=== PATIENT | female | born 1975 | race Caucasian/White ===

== ENCOUNTER 2016-11-06 07:51 | Emergency (ER) | payer MEDICAID ==
[2016-11-06 07:57] VITALS: BP 130/78
[2016-11-06] MEDS ORDERED: DEXAMETHASONE 10 MG/ML VIAL PO STA (08:24)
[2016-11-06] MEDS ORDERED: AZITHROMYCIN 250 MG TABLET PO STA (08:24)
[2016-11-06] MEDS ORDERED: DEXAMETHASONE 10 MG/ML VIAL ONE (08:29)
[2016-11-06] MEDS ORDERED: AZITHROMYCIN 250 MG TABLET PO ONE (08:29)
[2016-11-06] MEDS ORDERED: CHERRY SYRUP 10 ML UDC PO ONE (08:30)
--- NOTE | 2016-11-06 08:30 | ED Physician Documentation ---
PD HPI HEENT - Stated complaint Stated Complaint: TOOTH/EAR PX - Chief complaint Chief Complaint: Heent - History obtained from History obtained from: Patient - History of Present Illness Timing - duration: Weeks (About 6 weeks.) Timing - details: Waxing and waning Similar symptoms before: Treatment (Previous treatment with Augmentin and with Cipro, as well as Sudafed.) Recently seen: Other (Has undergone treatment by nurse at [facility].) - Additional information Additional information: The patient is a 41-year-old female who was released from the [facility] this morning, and presents to the emergency department complaining of bilateral earaches, worse on the left than the right. In addition she complains of abscessed right lower tooth, sore throat, and pressure in her head. She has had similar symptoms waxing and waning for at least 6 weeks. She was treated with a 10 day course of Augmentin 6 weeks ago, and then with a course of ciprofloxacin when the Augmentin did not relieve her symptoms. She denies cough , vomiting, or dysuria. She is uncertain but thinks she may have had a low- grade fever. Review of Systems Constitutional: reports: Fever (uncertain) Eyes: denies: Discharge Ears: reports: Ear pain (left more than right.) Nose: reports: Sinus pressure / pain Throat: reports: Dental pain / toothache, Sore throat Cardiac: denies: Chest pain / pressure Respiratory: denies: Dyspnea, Cough GI: denies: Abdominal Pain, Nausea, Vomiting : denies: Dysuria Skin: denies: Rash Musculoskeletal: denies: Back pain, Extremity swelling Neurologic: reports: Headache ("pressure") PD PAST MEDICAL HISTORY - Past Medical History Cardiovascular: High cholesterol, Hypertension Respiratory: Asthma, Shortness of breath Neuro: TIA, CVA, Head injury, Headache/migraine Endocrine/Autoimmune: None GI: GERD, Ulcers 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 HEENT: None Psych: Anxiety, Panic attacks, ADD/ADHD, Post traumatic stress disorder Musculoskeletal: Chronic back pain, Other Derm: None - Past Surgical History Past Surgical History: Yes Ortho: Other /WORKFORCE DEVELOPMENT VICE PRESIDENT: section HEENT: Tonsil/Adenoidectomy - Present Medications Home Medications: Ambulatory Orders Medication Instructions Recorded Confirmed Ibuprofen 800 mg PO DAILY PRN 07/18/15 11/06/16 Bupropion HCl 100 mg PO TID 11/21/15 11/06/16 Quetiapine Fumarate 100 mg PO TID 11/21/15 11/06/16 Acetaminophen/Cod 300/30 [Tylenol 1 each PO Q4-6H PRN #20 tablet 11/06/16 #3] Azithromycin [Zithromax] 250 mg PO DAILY #6 tablet 11/06/16 Pseudoephedrine [Sudafed] 1 tab PO .FREQ 11/06/16 11/06/16 diphenhydrAMINE [Benadryl] 1 tab PO .FREQ 11/06/16 11/06/16 - Allergies Allergies/Adverse Reactions: Allergies Allergy/AdvReac Type Severity Reaction Status Date / Time doxycycline Allergy Rash Verified 11/06/16 07:56 ketorolac tromethamine * Allergy Unknown Verified 11/06/16 07:56 [From Toradol] - Social History Does the pt smoke?: Yes Smoking Status: Current some day smoker Does the pt drink ETOH?: No Does the pt have substance abuse?: No - Immunizations Immunizations are current?: Yes - POLST Patient has POLST: No PD ED PE NORMAL - Vitals Vital signs reviewed: Yes (normal) - General General: Alert and oriented X 3, Well developed/nourished, Other (sounds congested when speaking.) - HEENT HEENT: Atraumatic, EOMI, Pharynx benign, Other (There is purulence behind the left tympanic membrane, with decreased hearing on the left compared to the right. Examination of her teeth reveal scattered dental caries, with tenderness to palpation of right lower molar. There is no facial swelling.) - Neck Neck: Supple, no meningeal sign, No JVD, Other (Mildly enlarged anterior cervical nodes bilaterally.) - Cardiac Cardiac: RRR, No murmur - Respiratory Respiratory: No respiratory distress, Clear bilaterally - Abdomen Abdomen: Soft, Non tender - Back Back: No CVA TTP - Derm Derm: No rash - Extremities Extremities: No edema, No calf tenderness / cord - Neuro Neuro: Alert and oriented X 3, No motor deficit, Normal speech Results - Vitals Vitals: Oxygen O2 Source Room air PD MEDICAL DECISION MAKING - ED course Complexity details: reviewed old records, considered differential, d/w patient ED course: The patient's presentation is significant for persistent left otitis media, despite previous antibiotic treatment. She likely also has sinusitis. Her presentation does not suggest meningitis or peritonsillar abscess. She also has dental caries with odontalgia. Treatment in the emergency department included administration of Zithromax 500 mg orally and dexamethasone 10 mg orally. She is being discharged with prescriptions for Zithromax and for Tylenol No. 3. I discussed with her the diagnoses, antibiotic treatment and outpatient follow-up, as well as potentially worrisome signs or symptoms that should prompt reevaluation in the emergency department. Departure - Departure Disposition: 01 Home, Self Care Clinical Impression: Acute left otitis media, Pain, dental Headache Qualifiers: Headache type: unspecified Headache chronicity pattern: episodic headache Intractability: not intractable Qualified Code(s): R51 - Headache Condition: Stable Instructions: ED Otitis Media Acute Adult, ED Cephalgia Unspecified, ED Tooth Pain Follow-Up: [facility] [Provider Group] Prescriptions: Acetaminophen/Cod 300/30 [Tylenol #3] 1 each PO Q4-6H PRN #20 tablet PRN Reason: Pain Azithromycin [Zithromax] 250 mg PO DAILY #6 tablet Comments: Zithromax daily as prescribed. You can use Tylenol #3 as prescribed if needed for pain. Followup with your primary physician as scheduled. Return to the emergency department if you develop increasing pain, fever with shaking chills, or otherwise worsening symptoms. Discharge Date/Time: 11/06/16 08:37
== END 2016-11-06 08:37 | disposition home or self-care (01) ==
LOC: ED 07:51
DX: H66.93 Otitis media, unspecified, bilateral (principal); K08.89 Other specified disorders of teeth and supporting structures; R51 Headache; I10 Essential (primary) hypertension; E78.00 Pure hypercholesterolemia, unspecified; J45.909 Unspecified asthma, uncomplicated; Z86.73 Personal history of transient ischemic attack (TIA), and cerebral infarction without residual deficits; K21.9 Gastro-esophageal reflux disease without esophagitis; F17.200 Nicotine dependence, unspecified, uncomplicated
CPT/HCPCS: 99283; A9270

== ENCOUNTER 2016-11-17 10:56 | Emergency (ER) | payer MEDICAID | END 2016-11-17 12:41 | disposition left against medical advice (07) | DX: Z53.21 Procedure and treatment not carried out due to patient leaving prior to being seen by health care provider (principal) ==

== ENCOUNTER 2017-03-03 11:02 | Emergency (ER) | payer MEDICAID ==
--- NOTE | 2017-03-03 12:07 | XRAY Preliminary Report ---
Exam: XR Foot 3 View RT IMPRESSION: 1. No acute fracture or dislocation identified. Intact appearing fixation screw at the distal tibia. [facility] SITE ID: [id number]
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
[2017-03-03] MEDS ORDERED: DEXAMETHASONE 10 MG/ML VIAL PO STA (13:40)
[2017-03-03] MEDS ORDERED: DEXAMETHASONE 10 MG/ML VIAL ONE (13:59)
[2017-03-03] MEDS ORDERED: CHERRY SYRUP 10 ML UDC PO ONE (14:00)
[2017-03-03] MEDS ORDERED: ACETAMINOPHEN/CODEINE 300 MG/30 MG TABLET PO STA (14:24)
[2017-03-03] MEDS ORDERED: ACETAMINOPHEN/CODEINE 300 MG/30 MG TABLET PO ONE (14:29)
[2017-03-03 14:30] VITALS: BP 120/70
== END 2017-03-03 14:29 | disposition home or self-care (01) ==
LOC: ED 11:02
DX: S93.601A Unspecified sprain of right foot, initial encounter (principal); W01.0XXA Fall on same level from slipping, tripping and stumbling without subsequent striking against object, initial encounter; X50.1XXA Overexertion from prolonged static or awkward postures, initial encounter; Y92.009 Unspecified place in unspecified non-institutional (private) residence as the place of occurrence of the external cause; I10 Essential (primary) hypertension; E78.00 Pure hypercholesterolemia, unspecified; F17.200 Nicotine dependence, unspecified, uncomplicated
CPT/HCPCS: 29505; 73630; 99283; A9270

== ENCOUNTER 2017-03-20 14:39 | Outpatient (CLI) | payer MEDICAID ==
[2017-03-20 14:02] LABS: BASOPHILS # (AUTO) 0.1 10^3/uL (0.0-0.1); EOSINOPHILS # (AUTO) 0.1 10^3/uL (0.0-0.7); EOSINOPHILS % (AUTO) 1.5 %; HCT - HEMATOCRIT 34.2 % (37.0-47.0); HGB - HEMOGLOBIN 11.4 g/dL (12.0-16.0); LYMPHOCYTES # (AUTO) 1.8 10^3/uL (1.5-3.5); MEAN CORPUSCULAR HEMOGLOBIN 27.3 pg (27.0-31.0); MEAN CORPUSCULAR HGB CONC 33.2 g/dL (32.0-36.0); MEAN CORPUSCULAR VOLUME 82.3 fL (81.0-99.0); MEAN PLATELET VOLUME 7.7 fL (7.9-10.8); MONOCYTES # (AUTO) 0.7 10^3/uL (0.0-1.0); MONOCYTES % (AUTO) 7.7 %; NEUTROPHILS # (AUTO) 5.9 10^3/uL (1.5-6.6); NEUTROPHILS % (AUTO) 68.8 %; NUCLEATED RED BLOOD CELLS AUTO 0.1 /100WBC; RED BLOOD COUNT 4.15 10^6/uL (4.20-5.40); RED CELL DISTRIBUTION WIDTH 16.6 % (12.0-15.0); UNCORRECTED WHITE BLOOD COUNT 8.5 x10^3/uL; WHITE BLOOD COUNT 8.5 x10^3/uL (4.8-10.8)
[2017-03-20 14:56] LABS: ALBUMIN/GLOBULIN RATIO 1.4 (1.0-2.2); BILIRUBIN,TOTAL 0.7 mg/dL (0.2-1.0); BUN - BLOOD UREA NITROGEN 26 mg/dL (6-20); CALCIUM 9.1 mg/dL (8.5-10.3); CARBON DIOXIDE - CO2 23 mmol/L (21-32); CHLORIDE 107 mmol/L (101-111); CHOL/HDL RATIO 2.7 (<4.4); CHOLESTEROL 194 mg/dL; CREATININE 0.6 mg/dL (0.4-1.0); GFR - MDRD 111 (>89); GLUCOSE 94 mg/dL (70-100); HDL CHOLESTEROL 71 mg/dL; LDL/HDL RATIO 1.6 (<4.4); POTASSIUM 4.1 mmol/L (3.5-5.0); SODIUM 137 mmol/L (135-145); TOTAL PROTEIN 7.3 g/dL (6.7-8.2); TRIGLYCERIDES 59 mg/dL; VLDL CHOLESTEROL 12 mg/dL
== END 2017-03-20 14:40 | disposition home or self-care (01) ==
LOC: LAB.N 14:39
PROVIDERS: ATTEND Nurse Practitioner Gerontology
DX: Z79.899 Other long term (current) drug therapy (principal)
CPT/HCPCS: 36415; 80053; 80061; 84443; 85025

== ENCOUNTER 2017-06-04 11:54 | Emergency (ER) | payer MEDICAID ==
[2017-06-04 12:09] VITALS: BP 125/79
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
[2017-06-04] MEDS ORDERED: DEXAMETHASONE 10 MG/ML VIAL PO STA (13:31)
[2017-06-04] MEDS ORDERED: HYDROcod/ACETAM 5/325 MG TABLET PO STA (13:31)
[2017-06-04] MEDS ORDERED: METHOCARBAMOL 500 MG TABLET PO STA (13:31)
[2017-06-04] MEDS ORDERED: DEXAMETHASONE 10 MG/ML VIAL ONE (13:42)
[2017-06-04] MEDS ORDERED: METHOCARBAMOL 500 MG TABLET PO ONE (13:42)
[2017-06-04] MEDS ORDERED: HYDROcod/ACETAM 5/325 MG TABLET ONE (13:42)
== END 2017-06-04 14:16 | disposition home or self-care (01) ==
LOC: ED 11:54
DX: T14.8XXA Other injury of unspecified body region, initial encounter (principal); W17.89XA Other fall from one level to another, initial encounter; I10 Essential (primary) hypertension; E78.00 Pure hypercholesterolemia, unspecified; F17.200 Nicotine dependence, unspecified, uncomplicated
CPT/HCPCS: 99283; A9270

== ENCOUNTER 2017-06-07 10:08 | Emergency (ER) | payer MEDICAID ==
[2017-06-07 11:59] VITALS: BP 116/74
--- NOTE | 2017-06-07 12:02 | XRAY Preliminary Report ---
Exam: XR HIP W/PELVIS 2-3V RT IMPRESSION: Normal pelvis and hip radiography. [facility] SITE ID: [id number]
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
== END 2017-06-07 13:30 | disposition home or self-care (01) ==
LOC: EDBD → EDUNIT# → ED 10:08
DX: S70.01XA Contusion of right hip, initial encounter (principal); V03.90XA Pedestrian on foot injured in collision with car, pick-up truck or van, unspecified whether traffic or nontraffic accident, initial encounter; Y92.488 Other paved roadways as the place of occurrence of the external cause; I10 Essential (primary) hypertension; E78.00 Pure hypercholesterolemia, unspecified; J45.909 Unspecified asthma, uncomplicated; K21.9 Gastro-esophageal reflux disease without esophagitis; Z87.11 Personal history of peptic ulcer disease; F17.200 Nicotine dependence, unspecified, uncomplicated
CPT/HCPCS: 99283

== ENCOUNTER 2017-06-07 12:50 | Outpatient (CLI) | payer MEDICAID | END 2017-06-07 12:51 | disposition critical access hospital (66) | LOC: EMS 12:50 | PROVIDERS: ATTEND Surgery | DX: R52 Pain, unspecified (principal) | CPT/HCPCS: A0425; A0429 ==

== ENCOUNTER 2017-06-08 01:25 | Emergency (ER) | payer MEDICAID ==
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
--- NOTE | 2017-06-08 02:21 | XRAY Preliminary Report ---
Exam: XR TIB/FIB LT IMPRESSION: 1. No fracture or dislocation seen. [facility] SITE ID: [id number]
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
[2017-06-08 02:51] VITALS: BP 121/70
== END 2017-06-08 02:22 | disposition home or self-care (01) ==
LOC: ED 01:25
DX: M79.662 Pain in left lower leg (principal); V03.10XA Pedestrian on foot injured in collision with car, pick-up truck or van in traffic accident, initial encounter; Y92.488 Other paved roadways as the place of occurrence of the external cause; I10 Essential (primary) hypertension; E78.00 Pure hypercholesterolemia, unspecified; J45.909 Unspecified asthma, uncomplicated; K21.9 Gastro-esophageal reflux disease without esophagitis; Z87.11 Personal history of peptic ulcer disease; F17.200 Nicotine dependence, unspecified, uncomplicated
CPT/HCPCS: 99283

== ENCOUNTER 2017-08-31 07:55 | Emergency (ER) | payer MEDICAID ==
[2017-08-31 08:05] VITALS: BP 133/90
[2017-08-31] MEDS ORDERED: DEXAMETHASONE 10 MG/ML VIAL PO STA (08:11)
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
[2017-08-31] MEDS ORDERED: AMOX/CLAV 875 MG/125 MG TABLET PO STA (08:15)
[2017-08-31] MEDS ORDERED: CHERRY SYRUP 10 ML UDC PO ONE (08:28)
--- NOTE | 2017-08-31 08:42 | XRAY Report ---
EXAM: CHEST RADIOGRAPHY EXAM DATE: 08/31/2017 08:35 AM. CLINICAL HISTORY: Cough chest pain soa. COMPARISON: None. TECHNIQUE: 2 views. FINDINGS: Lungs/Pleura: No focal opacities evident. No pleural effusion. No pneumothorax. Normal volumes. Mediastinum: Heart and mediastinal contours are unremarkable. Other: None. IMPRESSION: No acute radiographic cardiopulmonary process [facility] Referring Provider Line: [phone] SITE ID: [id number]
== END 2017-08-31 08:53 | disposition home or self-care (01) ==
LOC: ED 07:55
DX: M94.0 Chondrocostal junction syndrome [Tietze] (principal); H66.001 Acute suppurative otitis media without spontaneous rupture of ear drum, right ear; E78.00 Pure hypercholesterolemia, unspecified; I10 Essential (primary) hypertension; F17.200 Nicotine dependence, unspecified, uncomplicated
CPT/HCPCS: 71046; 99283; A9270

== ENCOUNTER 2018-04-23 16:14 | Emergency (ER) | payer MEDICAID ==
[2018-04-23 16:20] VITALS: BP 133/83
[2018-04-23] MEDS ORDERED: DEXAMETHASONE 10 MG/ML VIAL PO STA (16:35)
[2018-04-23] MEDS ORDERED: CHERRY SYRUP 10 ML UDC PO ONE (16:53)
--- NOTE | 2018-04-23 17:14 | ED Physician Documentation ---
PD HPI HEENT - Stated complaint Stated Complaint: EAR PX - Chief complaint Chief Complaint: Heent - History obtained from History obtained from: Patient - History of Present Illness Timing - onset: How many days ago (5) Timing - duration: Days (5) Timing - details: Gradual onset, Still present Location: Right ear, Sinuses, Throat Improves: Medication Worsens: Swalllowing Associated symptoms: Congestion, Rhinorrhea, Headache, Cough Similar symptoms before: Diagnosis (OM) Recently seen: Not recently seen - Additional information Additional information: 42-year-old female with a history of recurrent otitis media has developed signs and symptoms of another infection. She has a cough congestion ear pain and a sensation of fullness in both ears. She has a headache which is throbbing and anteriorly located. She feels heavy in her legs. Review of Systems Constitutional: reports: Chills, Fatigue, Sweats. denies: Fever Eyes: denies: Decreased vision Ears: reports: Loss of hearing, Ear pain, Tinnitus/ringing Nose: reports: Rhinorrhea / runny nose, Congestion Throat: reports: Sore throat Cardiac: denies: Chest pain / pressure, Palpitations Respiratory: reports: Cough. denies: Dyspnea GI: denies: Abdominal Pain, Nausea, Vomiting : denies: Dysuria, Frequency Skin: denies: Abrasion (s) Musculoskeletal: denies: Neck pain, Back pain Neurologic: denies: Generalized weakness, Focal weakness, Numbness PD PAST MEDICAL HISTORY - Past Medical History Cardiovascular: High cholesterol, Hypertension Respiratory: Asthma, Shortness of breath Neuro: None Endocrine/Autoimmune: None GI: GERD, Ulcers CLIENT ARCHITECT: Other HEENT: None Psych: Anxiety, Panic attacks, ADD/ADHD, Post traumatic stress disorder Musculoskeletal: Chronic back pain, Other Derm: None - Past Surgical History Past Surgical History: Yes Ortho: Other /CLIENT ARCHITECT: section HEENT: Tonsil/Adenoidectomy - Present Medications Home Medications: Ambulatory Orders Medication Instructions Recorded Confirmed Quetiapine Fumarate 800 mg PO DAILY 11/21/15 11/17/16 buPROPion HCl [Bupropion HCl] 100 mg PO BID 11/21/15 11/17/16 Albuterol Sulf [Ventolin Hfa 1 - 2 puffs INH Q4HR PRN #1 inhaler 08/31/17 Inhaler] Amox/Clav 875/125 [Augmentin] 1 each PO Q12H #20 tablet 10/05/18 Dextroamphetamine/Amphetamine 1 tab PO BID 04/23/18 04/23/18 [Adderall 10 mg Tablet] Fluconazole [Diflucan] 150 mg PO ONCE #1 tablet 04/23/18 Fluticasone 44 Mcg [Flovent] 1 puffs INH Q6HR PRN 04/23/18 04/23/18 HYDROcod/ACETAM 5/325 [[place] 5/325] 1 - 2 ea PO Q6H PRN #10 tablet 04/23/18 busPIRone [Buspar] 3 tab PO BID 04/23/18 04/23/18 predniSONE [Deltasone] 40 mg PO DAILY 5 Days #10 tablet 04/23/18 - Allergies Allergies/Adverse Reactions: Allergies Allergy/AdvReac Type Severity Reaction Status Date / Time doxycycline Allergy Rash Verified 04/23/18 16:19 ketorolac tromethamine * Allergy Unknown Verified 04/23/18 16:19 [From Toradol] - Social History Does the pt smoke?: Yes Smoking Status: Current every day smoker Does the pt drink ETOH?: No Does the pt have substance abuse?: No - Immunizations Immunizations are current?: Yes Immunizations: TDAP >10years/unknown - POLST Patient has POLST: No PD ED PE NORMAL - Vitals Vital signs reviewed: Yes (hyperternsive mild) - General General: Alert and oriented X 3, Well developed/nourished, Other (appears to be in pain with lead application architect tone and flat affect) - HEENT HEENT: Atraumatic, PERRL, EOMI, Other (erythema to the right TM with flattening of the landmarks. nasal quality to voice. erythema to the pharynx on the right over the tonsillar pillar. ) - Neck Neck: Supple, no meningeal sign, No bony TTP - Cardiac Cardiac: RRR, No murmur - Respiratory Respiratory: No respiratory distress, Clear bilaterally - Abdomen Abdomen: Soft, Non tender - Back Back: No CVA TTP, No spinal TTP - Derm Derm: Normal color, Warm and dry, No rash - Extremities Extremities: No deformity, No edema - Neuro Neuro: Alert and oriented X 3, medical imaging technologist 2-12 intact, No motor deficit, No sensory deficit, Normal speech Eye Opening: Spontaneous Motor: Obeys Commands Verbal: Oriented GCS Score: 15 - Psych Psych: Normal mood, Normal affect Results - Vitals Vitals: Vital Signs - 24 hr 04/23/18 16:16 Temperature 36.7 C Heart Rate 91 Respiratory 16 Rate Blood Pressure 133/83 H O2 Saturation 100 Oxygen O2 Source Room air PD MEDICAL DECISION MAKING - ED course Complexity details: reviewed old records, considered differential, d/w patient ED course: 42 y/o female with a history of recurrent OM has another infection. She is a poor historian and does not remember but thinks her last treatment was successful. She is treated here in the ED with decadron and we will place her on augmentin and prednisone. - Sepsis Event Vital Signs: Vital Signs - 24 hr 04/23/18 16:16 Temperature 36.7 C Heart Rate 91 Respiratory 16 Rate Blood Pressure 133/83 H O2 Saturation 100 Oxygen O2 Source Room air Departure - Departure Disposition: 01 Home, Self Care Clinical Impression: Otitis media Qualifiers: Otitis media type: suppurative Chronicity: acute Laterality: right Recurrence: not specified as recurrent Spontaneous tympanic membrane rupture: without spontaneous rupture Qualified Code(s): H66.001 - Acute suppurative otitis media without spontaneous rupture of ear drum, right ear Condition: Stable Instructions: ED Otitis Media Acute Adult Follow-Up: Your, doctor [Other] Prescriptions: Amox/Clav 875/125 [Augmentin] 1 each PO Q12H #20 tablet Fluconazole [Diflucan] 150 mg PO ONCE #1 tablet HYDROcod/ACETAM 5/325 [[place] 5/325] 1 - 2 ea PO Q6H PRN #10 tablet PRN Reason: Pain predniSONE [Deltasone] 40 mg PO DAILY 5 Days #10 tablet
== END 2018-04-23 17:25 | disposition home or self-care (01) ==
LOC: ED 16:14
DX: H66.001 Acute suppurative otitis media without spontaneous rupture of ear drum, right ear (principal); I10 Essential (primary) hypertension; F17.200 Nicotine dependence, unspecified, uncomplicated
CPT/HCPCS: 99283; A9270

== ENCOUNTER 2018-06-16 10:54 | Outpatient (CLI) | payer MEDICAID ==
--- NOTE | 2018-06-16 13:36 | XRAY Report ---
Reason: LUMBAR Procedure Date: 06/16/2018 Accession Number: [id number] / [id number] Procedure: XRN - Lumbar Spine 2 View CPT Code: FULL RESULT: EXAM: LUMBOSACRAL SPINE RADIOGRAPHY EXAM DATE: 06/16/2018 11:21 AM. CLINICAL HISTORY: Lumbar. COMPARISONS: None. TECHNIQUE: 3 views. FINDINGS: Alignment: Normal. No spondylolisthesis or scoliosis. Bones: Five [id number] lumbar vertebral bodies are present. No fractures or bone lesions. Disks: Loss of disk space height with sclerosis and marginal osteophytosis at L5-S1. Facets: Moderate to severe facet arthropathy at L5. Questionable pars defect at L5 which would account for the increased degenerative changes. Sacroiliac Joints: Unremarkable. Soft Tissues: Normal. The visualized bowel gas pattern is normal. IMPRESSION: Degenerative changes predominate L5-S1, question pars defect at this level. [facility]
--- NOTE | 2018-06-16 13:36 | XRAY Report ---
Reason: LUMBAGO/ANKLE ARTHROPATHY Procedure Date: 06/16/2018 Accession Number: [id number] / [id number] Procedure: XRN - Ankle 3 View RT CPT Code: FULL RESULT: EXAM: RIGHT ANKLE RADIOGRAPHY EXAM DATE: 06/16/2018 11:21 AM. CLINICAL HISTORY: Lumbago/ankle arthropathy. COMPARISON: ANKLE 3 VIEW RT 03/12/2017 2:11 PM. TECHNIQUE: 3 views. FINDINGS: Bones: Unchanged configuration of partially threaded distal tibial screw. No fractures or bone lesions. Joints: Normal. No effusion. No subluxations. The ankle mortise is normally aligned. Soft Tissues: Normal. No soft tissue swelling. IMPRESSION: No fracture or dislocation. [facility]
== END 2018-06-16 10:55 | disposition home or self-care (01) ==
LOC: DI.N 10:54
PROVIDERS: ATTEND Nurse Practitioner
DX: M51.37 Other intervertebral disc degeneration, lumbosacral region (principal); M47.9 Spondylosis, unspecified; M12.9 Arthropathy, unspecified; R53.83 Other fatigue
CPT/HCPCS: 36415; 72100; 80053; 85025

== ENCOUNTER 2018-06-16 11:49 | Outpatient (CLI) | payer MEDICAID ==
[2018-06-16 19:15] LABS: ALBUMIN 4.9 g/dL (3.2-5.5); ALBUMIN/GLOBULIN RATIO 1.6 (1.0-2.2); BILIRUBIN,TOTAL 0.6 mg/dL (0.2-1.0); CALCIUM 9.8 mg/dL (8.5-10.3); CREATININE 0.9 mg/dL (0.4-1.0); TOTAL PROTEIN 7.9 g/dL (6.7-8.2)
[2018-06-16 19:20] LABS: BASOPHILS % (AUTO) 0.8 %; EOSINOPHILS # (AUTO) 0.1 10^3/uL (0.0-0.7); EOSINOPHILS % (AUTO) 1.2 %; HGB - HEMOGLOBIN 12.4 g/dL (12.0-16.0); LYMPHOCYTES # (AUTO) 2.1 10^3/uL (1.5-3.5); LYMPHOCYTES % (AUTO) 35.2 %; MEAN CORPUSCULAR HEMOGLOBIN 25.3 pg (27.0-31.0); MEAN CORPUSCULAR HGB CONC 32.7 g/dL (32.0-36.0); MEAN CORPUSCULAR VOLUME 77.4 fL (81.0-99.0); MEAN PLATELET VOLUME 7.6 fL (7.9-10.8); MONOCYTES # (AUTO) 0.5 10^3/uL (0.0-1.0); MONOCYTES % (AUTO) 8.4 %; NEUTROPHILS # (AUTO) 3.2 10^3/uL (1.5-6.6); NEUTROPHILS % (AUTO) 54.4 %; PLT - PLATELET COUNT 347 10^3/uL (130-450); RED CELL DISTRIBUTION WIDTH 17.8 % (12.0-15.0); WHITE BLOOD COUNT 5.9 x10^3/uL (4.8-10.8)
== END 2018-06-16 11:50 | disposition home or self-care (01) ==
LOC: LAB.N 11:49
PROVIDERS: ATTEND Nurse Practitioner
DX: R53.83 Other fatigue (principal)
CPT/HCPCS: 36415; 80053; 85025

== ENCOUNTER 2018-10-25 08:00 | Outpatient (CLI) | payer MEDICAID | END 2018-10-25 23:59 | disposition home or self-care (01) | LOC: LAB.R 08:00 | PROVIDERS: ATTEND Nurse Practitioner | DX: L03.90 Cellulitis, unspecified (principal); W54.0XXD Bitten by dog, subsequent encounter | CPT/HCPCS: 87070; 87077; 87181; 87205 ==

== ENCOUNTER 2018-12-16 11:08 | Emergency (ER) | payer MEDICAID ==
[2018-12-16] MEDS ORDERED: ONDANSETRON 4 MG/2 ML VIAL IVP STA (12:12)
[2018-12-16] MEDS ORDERED: SODIUM CHLORIDE 0.9% 1,000 ML IV ONE (12:12)
[2018-12-16] MEDS ORDERED: MORPHINE 2 MG/ML SYRINGE IVP STA ×2 (12:12→13:43)
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
[2018-12-16 12:39] LABS: BASOPHILS # (AUTO) 0.1 10^3/uL (0.0-0.1); BASOPHILS % (AUTO) 1.5 %; EOSINOPHILS # (AUTO) 0.1 10^3/uL (0.0-0.7); EOSINOPHILS % (AUTO) 2.1 %; HGB - HEMOGLOBIN 10.4 g/dL (12.0-16.0); LYMPHOCYTES # (AUTO) 2.1 10^3/uL (1.5-3.5); LYMPHOCYTES % (AUTO) 35.8 %; MEAN CORPUSCULAR HEMOGLOBIN 25.3 pg (27.0-31.0); MEAN CORPUSCULAR HGB CONC 32.3 g/dL (32.0-36.0); MEAN CORPUSCULAR VOLUME 78.1 fL (81.0-99.0); MEAN PLATELET VOLUME 7.2 fL (7.9-10.8); MONOCYTES # (AUTO) 0.6 10^3/uL (0.0-1.0); MONOCYTES % (AUTO) 9.6 %; PLT - PLATELET COUNT 390 10^3/uL (130-450); RED BLOOD COUNT 4.11 10^6/uL (4.20-5.40); RED CELL DISTRIBUTION WIDTH 16.7 % (12.0-15.0); WHITE BLOOD COUNT 5.9 x10^3/uL (4.8-10.8)
[2018-12-16 12:56] LABS: ALBUMIN 3.8 g/dL (3.2-5.5); ALBUMIN/GLOBULIN RATIO 1.2 (1.0-2.2); BILIRUBIN,TOTAL 0.4 mg/dL (0.2-1.0); CREATININE 0.6 mg/dL (0.4-1.0); TOTAL PROTEIN 7.1 g/dL (6.7-8.2)
--- NOTE | 2018-12-16 13:33 | XRAY Report ---
Reason: fever; back pain Procedure Date: 12/16/2018 Accession Number: [id number] / [id number] Procedure: XR - Lumbar Spine 2 View CPT Code: FULL RESULT: EXAM: LUMBOSACRAL SPINE RADIOGRAPHY EXAM DATE: 12/16/2018 12:35 PM. CLINICAL HISTORY: Fever; back pain. COMPARISONS: LUMBAR SPINE 2 VIEW 06/16/2018 11:15 AM. TECHNIQUE: 2 views. FINDINGS: Alignment: Normal. No spondylolisthesis or scoliosis. Bones: 5 lumbar vertebrae. No fractures or bone lesions. Disks: Marked disk space narrowing at L5-S1 with vacuum disk phenomenon and associated degenerative changes. Other disk spaces well preserved. Facets: Degenerative changes most marked at L5-S1. Sacroiliac Joints: Unremarkable. Soft Tissues: Nonspecific bowel gas pattern with large amount of stool. IMPRESSION: Degenerative joint and disk disease at L5-S1 similar to previous exam. RADIA
--- NOTE | 2018-12-16 13:34 | XRAY Report ---
Reason: cough Procedure Date: 12/16/2018 Accession Number: [id number] / [id number] Procedure: XR - Chest 2 View X-Ray CPT Code: 90065 FULL RESULT: EXAM: CHEST RADIOGRAPHY EXAM DATE: 12/16/2018 12:36 PM. CLINICAL HISTORY: Cough. COMPARISON: CHEST 2 VIEW 08/31/2017 8:12 AM. TECHNIQUE: 2 views. FINDINGS: Lungs/Pleura: Clear. No effusion or pneumothorax. Mediastinum: Heart and mediastinal contours are unremarkable. Other: Mild degenerative changes. IMPRESSION: No acute disease. RADIA
--- NOTE | 2018-12-16 13:35 | XRAY Report ---
Reason: back pain Procedure Date: 12/16/2018 Accession Number: [id number] / [id number] Procedure: XR - Sacrum/Coccyx CPT Code: FULL RESULT: EXAM: SACRUM AND COCCYX RADIOGRAPHY EXAM DATE: 12/16/2018 12:36 PM. HISTORY: Back pain. COMPARISONS: LUMBAR SPINE 2 VIEW 06/16/2018 11:15 AM. TECHNIQUE: 3 views. FINDINGS: Alignment: Normal. The sacrum and coccyx are normally aligned. Bones: Normal. No fracture or bone lesion. Joints: Degenerative joint and disk disease at L5-S1. The sacroiliac joints and visualized hips are within normal limits. Soft Tissues: Unremarkable. IMPRESSION: Normal sacrum and coccyx radiography. RADIA
[2018-12-16 14:31] LABS: BILIRUBIN,URINE NEGATIVE (NEGATIVE); GLUCOSE, URINE (UA) NEGATIVE (NEGATIVE); KETONES,URINE (UA) NEGATIVE (NEGATIVE); LEUKOCYTE ESTERASE, URINE NEGATIVE (NEGATIVE); NITRITE,URINE NEGATIVE (NEGATIVE); OCCULT BLOOD,URINE NEGATIVE (NEGATIVE); PH,URINE 5.5 PH (5.0-7.5); PROTEIN,URINE NEGATIVE (NEGATIVE); UROBILINOGEN,URINE 0.2 (NORMAL) E.U./dL (NORMAL)
[2018-12-16 14:34] LABS: CLARITY,URINE CLEAR (CLEAR)
[2018-12-16 16:20] VITALS: BP 113/70
== END 2018-12-16 16:21 | disposition home or self-care (01) ==
LOC: ED 11:08
DX: S39.92XA Unspecified injury of lower back, initial encounter (principal); W18.30XA Fall on same level, unspecified, initial encounter; W22.8XXA Striking against or struck by other objects, initial encounter; R50.9 Fever, unspecified; F41.9 Anxiety disorder, unspecified; I10 Essential (primary) hypertension; M51.37 Other intervertebral disc degeneration, lumbosacral region; M47.817 Spondylosis without myelopathy or radiculopathy, lumbosacral region; F17.200 Nicotine dependence, unspecified, uncomplicated
CPT/HCPCS: 36415; 71046; 72100; 72220; 80053; 81003; 83690; 85025; 96361; 96374; 96375; 99283; 99284; J2270; 81001; 87086

== ENCOUNTER 2019-02-28 23:39 | Outpatient (CLI) | payer MEDICAID | END 2019-02-28 23:40 | disposition critical access hospital (66) | LOC: EMS 23:39 | PROVIDERS: ATTEND Surgery | DX: R07.81 Pleurodynia (principal); R07.1 Chest pain on breathing; W01.0XXA Fall on same level from slipping, tripping and stumbling without subsequent striking against object, initial encounter | CPT/HCPCS: A0425; A0429 ==

== ENCOUNTER 2019-02-28 23:54 | Emergency (ER) | payer MEDICAID ==
[2019-03-01 00:10] VITALS: BP 116/65
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
[2019-03-01] MEDS ORDERED: IBUPROFEN 600 MG TABLET PO STA (01:46)
== END 2019-03-01 03:48 | disposition home or self-care (01) ==
LOC: EDUNIT# → ED 23:54
DX: S30.0XXA Contusion of lower back and pelvis, initial encounter (principal); R07.89 Other chest pain; W01.0XXA Fall on same level from slipping, tripping and stumbling without subsequent striking against object, initial encounter; R46.2 Strange and inexplicable behavior; I10 Essential (primary) hypertension; F17.200 Nicotine dependence, unspecified, uncomplicated
CPT/HCPCS: 99282; 99284; A9270

== ENCOUNTER 2019-04-08 09:55 | Outpatient (CLI) | payer MEDICAID | END 2019-04-08 09:56 | disposition EMS.NT | LOC: EMS 09:55 | PROVIDERS: ATTEND Surgery | DX: S09.90XA Unspecified injury of head, initial encounter (principal); Y04.2XXA Assault by strike against or bumped into by another person, initial encounter ==

== ENCOUNTER 2019-04-09 01:01 | Outpatient (CLI) | payer MEDICAID, OTHER | END 2019-04-09 01:02 | disposition home or self-care (01) | LOC: EMS 01:01 | PROVIDERS: ATTEND Surgery | DX: M54.2 Cervicalgia (principal); M54.9 Dorsalgia, unspecified; R46.89 Other symptoms and signs involving appearance and behavior; Y04.2XXA Assault by strike against or bumped into by another person, initial encounter | CPT/HCPCS: A0425; A0429; A0999 ==

== ENCOUNTER 2019-04-09 01:19 | Emergency (ER) | payer MEDICAID, OTHER ==
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
[2019-04-09] MEDS ORDERED: ACETAMINOPHEN 325 MG TABLET PO STA (03:04)
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
[2019-04-09] MEDS ORDERED: traMADol 50 MG TABLET PO STA (03:18)
[2019-04-09 03:21] VITALS: BP 108/71
== END 2019-04-09 05:36 | disposition home or self-care (01) ==
LOC: EDUNIT# → ED 01:19
DX: S09.90XA Unspecified injury of head, initial encounter (principal); Y04.2XXA Assault by strike against or bumped into by another person, initial encounter; M50.321 Other cervical disc degeneration at C4-C5 level; M50.222 Other cervical disc displacement at C5-C6 level; I10 Essential (primary) hypertension; F17.200 Nicotine dependence, unspecified, uncomplicated
CPT/HCPCS: 70450; 72125; 99284

== ENCOUNTER 2019-04-09 05:41 | Emergency (ER) | payer MEDICAID, OTHER ==
[2019-04-09 05:57] VITALS: BP 122/79
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
[2019-04-09] MEDS ORDERED: IBUPROFEN 800 MG TABLET PO STA (06:25)
== END 2019-04-09 06:33 | disposition home or self-care (01) ==
LOC: ED 05:41
DX: S09.90XA Unspecified injury of head, initial encounter (principal); Y04.2XXA Assault by strike against or bumped into by another person, initial encounter; M50.321 Other cervical disc degeneration at C4-C5 level; M50.222 Other cervical disc displacement at C5-C6 level; L03.031 Cellulitis of right toe; F41.9 Anxiety disorder, unspecified; I10 Essential (primary) hypertension; F17.200 Nicotine dependence, unspecified, uncomplicated
CPT/HCPCS: 70450; 72125; 99281; 99284; A9270

== ENCOUNTER 2019-04-25 11:27 | Outpatient (CLI) | payer MEDICAID | END 2019-04-25 11:28 | disposition EMS.NT | LOC: EMS 11:27 | PROVIDERS: ATTEND Surgery | DX: M79.642 Pain in left hand (principal); M79.661 Pain in right lower leg ==

== ENCOUNTER 2019-06-30 09:48 | Emergency (ER) | payer MEDICAID ==
--- NOTE | 2019-06-30 11:03 | ED Physician Documentation ---
History of Present Illness - Stated complaint Stated Complaint: RT LEG PX - Chief complaint Chief Complaint: General - History obtained from History obtained from: Patient - History of Present Illness Timing: How many weeks ago (several) Pain level max: 8 Pain level now: 6 - Additonal information Additional information: RLE pain for several weeks. States seen a [facility] and given prednisone, flexeril and clonidine. States ran out and wants a refill of these meds. No fevers. Worse with walking. nothing makes it better. No fevers. No injury. 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 HEENT: None Psych: Anxiety, Panic attacks, ADD/ADHD, Post traumatic stress disorder Musculoskeletal: Chronic back pain, Other Derm: None - Past Surgical History Past Surgical History: Yes Ortho: Other /MANAGER BANQUET: section HEENT: Tonsil/Adenoidectomy - Present Medications Home Medications: Ambulatory Orders Medication Instructions Recorded Confirmed Quetiapine Fumarate 800 mg PO DAILY 11/21/15 03/01/19 buPROPion HCl [Bupropion HCl] 100 mg PO BID 11/21/15 03/01/19 Albuterol Sulf [Ventolin Hfa 1 - 2 puffs INH Q4HR PRN #1 inhaler 08/31/17 03/01/19 Inhaler] Fluticasone 44 Mcg [Flovent] 1 puffs INH Q6HR PRN 04/23/18 03/01/19 busPIRone [Buspar] 3 tab PO BID 04/23/18 03/01/19 Buspirone HCl 10 mg PO BID #14 tablet 04/09/19 Quetiapine Fumarate [Seroquel] 400 mg PO QPM #7 tablet 04/09/19 Sulfamethox/Trimeth 800/160 1 each PO BID #14 tablet 04/09/19 [Bactrim Ds 800/160] buPROPion HCl [Wellbutrin Sr] 200 mg PO DAILY #7 tab.er.12h 04/09/19 traMADol [Ultram] 50 mg PO Q4-6H #6 tablet 04/09/19 - Allergies Allergies/Adverse Reactions: Allergies Allergy/AdvReac Type Severity Reaction Status Date / Time doxycycline Allergy Rash Verified 06/30/19 09:57 ketorolac tromethamine * Allergy Unknown Verified 06/30/19 09:57 [From Toradol] - Social History Does the pt smoke?: Yes Smoking Status: Current every day smoker Does the pt drink ETOH?: No Does the pt have substance abuse?: No - Immunizations Immunizations are current?: Yes Immunizations: TDAP >10years/unknown - POLST Patient has POLST: No PD ED PE NORMAL - Vitals Vital signs reviewed: Yes - General General: Alert and oriented X 3, No acute distress, Well developed/nourished - HEENT HEENT: Moist mucous membranes - Neck Neck: Supple, no meningeal sign - Cardiac Cardiac: RRR, Strong equal pulses - Respiratory Respiratory: No respiratory distress, Clear bilaterally - Abdomen Abdomen: Soft, Non tender, Non distended - Derm Derm: Warm and dry - Extremities Extremities: No calf tenderness / cord, Other (No swelling. Neurovascular intact. No redness. Full range of motion of the knee. She does have a small joint effusion.) - Neuro Neuro: Alert and oriented X 3 - Psych Psych: Normal mood, Normal affect Results - Vitals Vitals: Vital Signs - 24 hr 06/30/19 11:08 Temperature 36.8 C Heart Rate 78 Respiratory 18 Rate Blood Pressure 130/85 H O2 Saturation 100 Oxygen O2 Source Room air PD MEDICAL DECISION MAKING - ED course Complexity details: reviewed old records, considered differential (no new trauma, no septic joint. ), d/w patient ED course: Patient presents the emergency department with right knee and leg pain. She was seen at [facility] for this a few weeks ago. She states she has not improved. Records were obtained from [facility]. She had a normal ultrasound and a normal x-ray other than a small joint effusion a few weeks ago. No new trauma. While awaiting records from [place], patient stated to RN that she needed to leave and eloped from the ER. Departure - Departure Disposition: ED Elope Clinical Impression: Joint effusion of knee Qualifiers: Laterality: right Qualified Code(s): M25.461 - Effusion, right knee Condition: Stable Discharge Date/Time: 06/30/19 12:04
[2019-06-30 11:08] VITALS: BP 130/85
== END 2019-06-30 12:04 | disposition left against medical advice (07) ==
LOC: ED 09:48
DX: M25.461 Effusion, right knee (principal); I10 Essential (primary) hypertension; F17.200 Nicotine dependence, unspecified, uncomplicated
CPT/HCPCS: 99281; 99282

== ENCOUNTER 2019-07-09 12:50 | Emergency (ER) | payer MEDICAID ==
[2019-07-09 13:17] VITALS: BP 120/87
--- NOTE | 2019-07-09 14:07 | ED Physician Documentation ---
History of Present Illness - Stated complaint Stated Complaint: R LEG SWELLING - Chief complaint Chief Complaint: Ext Problem - History obtained from History obtained from: Patient - Additonal information Additional information: patient had eloped when i went to see her. 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: None Psych: Anxiety, Panic attacks, ADD/ADHD, Post traumatic stress disorder Musculoskeletal: Chronic back pain, Other Derm: None - Past Surgical History Past Surgical History: Yes Ortho: Other /FILM PRINTER: section HEENT: Tonsil/Adenoidectomy - Present Medications Home Medications: Ambulatory Orders Medication Instructions Recorded Confirmed Quetiapine Fumarate 800 mg PO DAILY 11/21/15 03/01/19 buPROPion HCl [Bupropion HCl] 100 mg PO BID 11/21/15 03/01/19 Albuterol Sulf [Ventolin Hfa 1 - 2 puffs INH Q4HR PRN #1 inhaler 08/31/17 03/01/19 Inhaler] Fluticasone 44 Mcg [Flovent] 1 puffs INH Q6HR PRN 04/23/18 03/01/19 busPIRone [Buspar] 3 tab PO BID 04/23/18 03/01/19 Buspirone HCl 10 mg PO BID #14 tablet 04/09/19 Quetiapine Fumarate [Seroquel] 400 mg PO QPM #7 tablet 04/09/19 Sulfamethox/Trimeth 800/160 1 each PO BID #14 tablet 04/09/19 [Bactrim Ds 800/160] buPROPion HCl [Wellbutrin Sr] 200 mg PO DAILY #7 tab.er.12h 04/09/19 traMADol [Ultram] 50 mg PO Q4-6H #6 tablet 04/09/19 - Allergies Allergies/Adverse Reactions: Allergies Allergy/AdvReac Type Severity Reaction Status Date / Time doxycycline Allergy Rash Verified 07/09/19 13:17 ketorolac tromethamine * Allergy Unknown Verified 07/09/19 13:17 [From Toradol] - Social History Does the pt smoke?: Yes Smoking Status: Current every day smoker Does the pt drink ETOH?: No Does the pt have substance abuse?: No - Immunizations Immunizations are current?: Yes Immunizations: TDAP >10years/unknown - POLST Patient has POLST: No Results - Vitals Vitals: Vital Signs - 24 hr 07/09/19 13:14 Temperature 36.4 C L Heart Rate 107 H Respiratory 16 Rate Blood Pressure 120/87 H O2 Saturation 99 Oxygen O2 Source Room air Departure - Departure Disposition: ED Elope Clinical Impression: Pain of lower extremity Qualifiers: Laterality: right Qualified Code(s): M79.604 - Pain in right leg Condition: Stable
--- NOTE | 2019-07-09 14:49 | ED Physician Documentation ---
History of Present Illness - Stated complaint Stated Complaint: R LEG SWELLING - Chief complaint Chief Complaint: Ext Problem - History obtained from History obtained from: Patient - History of Present Illness Timing: Other (8 months) Pain level max: 5 Pain level now: 4 - Additonal information Additional information: 43-year-old female states that she has had ongoing problems with her right leg for the past 8 months. She states started after a dog bite to the knee. She is concerned she is having recurrent cellulitis. She states that she has difficulty controlling edema in that leg as well and has used approximately 10 Kaleb bandages to wrap her leg. She is currently wearing all of these. No fevers. States that she uses Motrin and Tylenol for pain. She states that she started taking iron as well, but this is hurting her stomach. No vomiting or diarrhea. 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 HEENT: None Psych: Anxiety, Panic attacks, ADD/ADHD, Post traumatic stress disorder Musculoskeletal: Chronic back pain, Other Derm: None - Past Surgical History Past Surgical History: Yes Ortho: Other /AREA SAFETY MANAGER: section HEENT: Tonsil/Adenoidectomy - Present Medications Home Medications: Ambulatory Orders Medication Instructions Recorded Confirmed Quetiapine Fumarate 800 mg PO DAILY 11/21/15 03/01/19 buPROPion HCl [Bupropion HCl] 100 mg PO BID 11/21/15 03/01/19 Albuterol Sulf [Ventolin Hfa 1 - 2 puffs INH Q4HR PRN #1 inhaler 08/31/17 03/01/19 Inhaler] Fluticasone 44 Mcg [Flovent] 1 puffs INH Q6HR PRN 04/23/18 03/01/19 busPIRone [Buspar] 3 tab PO BID 04/23/18 03/01/19 Buspirone HCl 10 mg PO BID #14 tablet 04/09/19 Quetiapine Fumarate [Seroquel] 400 mg PO QPM #7 tablet 04/09/19 Sulfamethox/Trimeth 800/160 1 each PO BID #14 tablet 04/09/19 [Bactrim Ds 800/160] buPROPion HCl [Wellbutrin Sr] 200 mg PO DAILY #7 tab.er.12h 04/09/19 traMADol [Ultram] 50 mg PO Q4-6H #6 tablet 04/09/19 Omeprazole 20 mg PO DAILY #30 capsule. 07/09/19 Sucralfate [Carafate] 1 gm PO ACHS #120 ml 07/09/19 cephALEXin [Cephalexin] 500 mg PO Q6H #40 tablet 07/09/19 predniSONE [Prednisone] 40 mg PO DAILY #10 tablet 07/09/19 - Allergies Allergies/Adverse Reactions: Allergies Allergy/AdvReac Type Severity Reaction Status Date / Time doxycycline Allergy Rash Verified 07/09/19 13:17 ketorolac tromethamine * Allergy Unknown Verified 07/09/19 13:17 [From Toradol] - Social History Does the pt smoke?: Yes Smoking Status: Current every day smoker Does the pt drink ETOH?: No Does the pt have substance abuse?: No - Immunizations Immunizations are current?: Yes Immunizations: TDAP >10years/unknown - POLST Patient has POLST: No PD ED PE NORMAL - Vitals Vital signs reviewed: Yes - General General: Alert and oriented X 3, No acute distress, Well developed/nourished - HEENT HEENT: Moist mucous membranes - Neck Neck: Supple, no meningeal sign - Cardiac Cardiac: RRR - Respiratory Respiratory: Clear bilaterally - Derm Derm: Warm and dry - Extremities Extremities: Other (Right lower extremity, minimal edema. No erythema. Neurovascularly intact. Full range of motion of all joints.) - Neuro Neuro: Alert and oriented X 3 - Psych Psych: Normal mood, Normal affect Results - Vitals Vitals: Vital Signs - 24 hr 07/09/19 13:14 Temperature 36.4 C L Heart Rate 107 H Respiratory 16 Rate Blood Pressure 120/87 H O2 Saturation 99 Oxygen O2 Source Room air PD MEDICAL DECISION MAKING - ED course Complexity details: reviewed old records, considered differential, d/w patient ED course: Patient is concerned about possibly developing cellulitis in the right lower extremity. States that this feels the same as last time. We will place her on Keflex even though I do not see cellulitis at this time. We will also place her on a PPI for her stomach as she is taking iron and Motrin together. She was given compression stockings here in place of the Kaleb wrap. Patient counseled regarding signs and symptoms for which I believe and urgent re-evaluation would be necessary. Patient with good understanding of and agreement to plan and is comfortable going home at this time This document was made in part using voice recognition software. While efforts a re made to proofread this document, sound alike and grammatical errors may occur. Departure - Departure Disposition: Home, Self Care Clinical Impression: Pain of lower extremity Qualifiers: Laterality: right Qualified Code(s): M79.604 - Pain in right leg Cellulitis Qualifiers: Site of cellulitis: extremity Site of cellulitis of extremity: lower extremity Laterality: right Qualified Code(s): L03.115 - Cellulitis of right lower limb GERD (gastroesophageal reflux disease) Qualifiers: Esophagitis presence: without esophagitis Qualified Code(s): K21.9 - Gastro- esophageal reflux disease without esophagitis Condition: Good Instructions: ED Infec Skin Cellulitis, ED GERD Follow-Up: TAMMI FORREST MD [Primary Care Provider] - Within 1 week Prescriptions: cephALEXin [Cephalexin] 500 mg PO Q6H #40 tablet Omeprazole 20 mg PO DAILY #30 capsule. predniSONE [Prednisone] 40 mg PO DAILY #10 tablet Sucralfate [Carafate] 1 gm PO ACHS #120 ml Comments: Use the compression socks at home. Return if you worsen. Follow-up with your doctor for further care.
== END 2019-07-09 15:08 | disposition home or self-care (01) ==
LOC: ED 12:50
DX: L03.115 Cellulitis of right lower limb (principal); M79.604 Pain in right leg; K21.9 Gastro-esophageal reflux disease without esophagitis; I10 Essential (primary) hypertension; F17.200 Nicotine dependence, unspecified, uncomplicated
CPT/HCPCS: 99283; 99284

== ENCOUNTER 2019-07-14 09:18 | Emergency (ER) | payer MEDICAID ==
--- NOTE | 2019-07-14 10:41 | ED Physician Documentation ---
History of Present Illness - Stated complaint Stated Complaint: R LEG PX - Chief complaint Chief Complaint: General - Additonal information Additional information: This is a 43-year-old female history of ADHD, panic attacks, and a past injury to her right knee from a dog bite, who presents with recurrence of her right leg pain as well as some chronic right back pain as well. Patient says she has multiple chronic pain complaints, she was seen recently and diagnosed with a cellulitis of her leg, has been taken the Keflex as well as the steroid was prescribed for her back pain and this is seem to help, she also taking clonidine which seems to help as well. She states that today her chronic pain is present, it is tingly and shoots over the front of her leg. This is similar to how it has been in the past She is able to walk and she denies any weakness or numbness in the leg. No fever, no swelling. She Has an appointment for a primary care provider in 6 days but she is hoping to get refills of medications including Carafate, clonidine, and a steroid and pain medication until then. She has had an ultrasound in the past which she states was negative for DVT. She denies pain in the posterior calf is more the anterior aspect of her leg. 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 HEENT: None Psych: Anxiety, Panic attacks, ADD/ADHD, Post traumatic stress disorder Musculoskeletal: Chronic back pain, Other Derm: None - Past Surgical History Past Surgical History: Yes Ortho: Other /SUPERVISOR MOLDING: section HEENT: Tonsil/Adenoidectomy - Present Medications Home Medications: Ambulatory Orders Medication Instructions Recorded Confirmed Quetiapine Fumarate 800 mg PO DAILY 11/21/15 03/01/19 buPROPion HCL [Bupropion HCl] 100 mg PO BID 11/21/15 03/01/19 Albuterol Sulf [Ventolin Hfa 1 - 2 puffs INH Q4HR PRN #1 inhaler 08/31/17 03/01/19 Inhaler] Fluticasone 44 Mcg [Flovent] 1 puffs INH Q6HR PRN 04/23/18 03/01/19 busPIRone [Buspar] 3 tab PO BID 04/23/18 03/01/19 Buspirone HCl 10 mg PO BID #14 tablet 04/09/19 Quetiapine Fumarate [Seroquel] 400 mg PO QPM #7 tablet 04/09/19 Sulfamethox/Trimeth 800/160 1 each PO BID #14 tablet 04/09/19 [Bactrim Ds 800/160] buPROPion HCl [Wellbutrin Sr] 200 mg PO DAILY #7 tab.er.12h 04/09/19 traMADol [Ultram] 50 mg PO Q4-6H #6 tablet 04/09/19 Omeprazole 20 mg PO DAILY #30 capsule.dr 07/09/19 Sucralfate [Carafate] 1 gm PO ACHS #120 ml 07/09/19 cephALEXin [Cephalexin] 500 mg PO Q6H #40 tablet 07/09/19 predniSONE [Prednisone] 40 mg PO DAILY #10 tablet 07/09/19 Acetaminophen 650 mg PO Q6HR #30 tablet 07/14/19 Cyclobenzaprine [Flexeril] 10 mg PO TID PRN #14 tablet 07/14/19 Methylprednisolone [Medrol] 4 mg PO DAILY #1 tab.ds.pk 07/14/19 Sucralfate [Carafate] 1 gm PO ACHS #60 tablet 07/14/19 - Allergies Allergies/Adverse Reactions: Allergies Allergy/AdvReac Type Severity Reaction Status Date / Time doxycycline Allergy Rash Verified 07/14/19 09:44 ketorolac tromethamine * Allergy Unknown Verified 07/14/19 09:44 [From Toradol] - Social History Does the pt smoke?: Yes Smoking Status: Current every day smoker Does the pt drink ETOH?: No Does the pt have substance abuse?: No - Immunizations Immunizations are current?: Yes Immunizations: TDAP >10years/unknown - POLST Patient has POLST: No PD ED PE NORMAL - General General: Alert and oriented X 3 - HEENT HEENT: Atraumatic - Cardiac Cardiac: RRR - Respiratory Respiratory: No respiratory distress, Clear bilaterally - Back Back: No spinal TTP, Other (Atraumatic, no skin changes.) - Extremities Extremities: No deformity, No edema, Other (BLE symmetric in appearance. RLE has no erythema or edema. It has a well-healed scar around the knee, no signs of acute trauma. ROM of hip, knee, ankles is excellent bilaterally. ) - Neuro Neuro: Alert and oriented X 3, No motor deficit, No sensory deficit Results - Vitals Vitals: Oxygen O2 Source Room air PD MEDICAL DECISION MAKING - ED course ED course: Pt presents with complaints of chronic leg pain, chronic back pain, and medication refill. Her exam is benign and she has excellent ROM of her limbs without signs of infection. She reportedly had a cellulitis recently, but this appears resolved. She asked for clonidine and I explained I do not feel comfortable refilling controlled substances given she is established with a care provider on her chronic issues. I did refill her carafate. I also prescribed a medrol dose-martha, as she states this helps her back pain, but I did so only after describing the side effects of steroids and the many dangers of their extended use. She has no new symptoms or red flags such as weakness, fever, bowel or bladder symptoms to suggest more nefarious pathology today and she has had ongoing outpatient work-up as well. I discussed care, return precautions, and close PCP follow up and pt was discharged. Departure - Departure Disposition: 01 Home, Self Care Clinical Impression: Leg pain Qualifiers: Laterality: right Qualified Code(s): M79.604 - Pain in right leg Condition: Good Follow-Up: TAMMI FORRSET MD [Primary Care Provider] - Within 1 week Prescriptions: Acetaminophen 650 mg PO Q6HR #30 tablet Cyclobenzaprine [Flexeril] 10 mg PO TID PRN #14 tablet PRN Reason: Spasms Methylprednisolone [Medrol] 4 mg PO DAILY #1 tab.ds.pk Sucralfate [Carafate] 1 gm PO ACHS #60 tablet Comments: It appears the infection in your leg is responding well to the antibiotic. I am prescribing a Medrol Dosepak but know that if you are on steroids for extended period of time this can cause significant side effects including low bone density, problems with your adrenal glands, and elevated blood sugar. I would not extend your steroids any further than this course. I am refilling your Millie fate, and your Flexeril, but refills should be done with your primary care provider in the future. It is okay to also take Tylenol 650 mg every 6 hours. Do not combine Flexeril with any other sedating medications as this can be dangerous. If you are having worsening or new concerning symptoms such as weakness in your legs, signs of worsening infection or difficulty going to the bathroom return to the emergency department Discharge Date/Time: 07/14/19 11:32
[2019-07-14] MEDS ORDERED: oxyCODONE 5 MG TABLET PO STA (11:06)
[2019-07-14 11:26] VITALS: BP 121/76
== END 2019-07-14 11:32 | disposition home or self-care (01) ==
LOC: ED 09:18
DX: M79.604 Pain in right leg (principal); M54.9 Dorsalgia, unspecified; G89.29 Other chronic pain; I10 Essential (primary) hypertension; F90.9 Attention-deficit hyperactivity disorder, unspecified type; F17.200 Nicotine dependence, unspecified, uncomplicated; Z76.0 Encounter for issue of repeat prescription
CPT/HCPCS: 99284; A9270

== ENCOUNTER 2019-08-19 10:30 | Outpatient (CLI) | payer MEDICAID ==
--- NOTE | 2019-08-19 14:16 | XRAY Report ---
Reason: SHOULDER PAIN Procedure Date: 08/19/2019 Accession Number: [id number] / [id number] Procedure: XRN - Shoulder 3 View LT CPT Code: Final Report FULL RESULT: EXAM: LEFT SHOULDER RADIOGRAPHY 3 VIEWS EXAM DATE: 08/19/2019. CLINICAL HISTORY: Left shoulder pain. COMPARISON: None. TECHNIQUE: AP, Grashey and scapular Y views. FINDINGS: Bones: Normal. No fracture or bone lesion. Joints: The glenohumeral and acromioclavicular joints appear normal. Soft tissues: No calcifications. The visualized left lung is clear. IMPRESSION: Normal left shoulder radiography. RADIA
== END 2019-08-19 10:31 | disposition home or self-care (01) ==
LOC: DI.N 10:30
PROVIDERS: ATTEND Family Medicine
DX: M25.512 Pain in left shoulder (principal)

== ENCOUNTER 2020-06-11 10:52 | Outpatient (CLI) | payer MEDICAID | END 2020-06-11 10:53 | disposition critical access hospital (66) | LOC: EMS 10:52 | PROVIDERS: ATTEND Surgery | DX: R10.84 Generalized abdominal pain (principal); M54.9 Dorsalgia, unspecified; R07.81 Pleurodynia; M79.642 Pain in left hand; M79.641 Pain in right hand; M79.672 Pain in left foot; M79.671 Pain in right foot | CPT/HCPCS: A0425; A0429 ==

== ENCOUNTER 2020-06-11 11:12 | Inpatient (IN) | payer MEDICAID ==
[2020-06-11 12:13] LABS: BASOPHILS # (AUTO) 0.1 10^3/uL (0.0-0.1); BASOPHILS % (AUTO) 0.5 %; EOSINOPHILS # (AUTO) 0.1 10^3/uL (0.0-0.7); EOSINOPHILS % (AUTO) 0.4 %; HGB - HEMOGLOBIN 12.3 g/dL (12.0-16.0); LYMPHOCYTES # (AUTO) 1.5 10^3/uL (1.5-3.5); LYMPHOCYTES % (AUTO) 10.7 %; MEAN CORPUSCULAR HGB CONC 32.3 g/dL (32.0-36.0); MEAN CORPUSCULAR VOLUME 83.7 fL (81.0-99.0); MEAN PLATELET VOLUME 8.9 fL (7.9-10.8); MONOCYTES # (AUTO) 0.8 10^3/uL (0.0-1.0); NEUTROPHILS # (AUTO) 11.1 10^3/uL (1.5-6.6); NEUTROPHILS % (AUTO) 81.8 %; PLT - PLATELET COUNT 369 10^3/uL (130-450); RED BLOOD COUNT 4.55 10^6/uL (4.20-5.40); RED CELL DISTRIBUTION WIDTH 14.9 % (12.0-15.0); WHITE BLOOD COUNT 13.6 x10^3/uL (4.8-10.8)
[2020-06-11] MEDS ORDERED: LORazepam 2 MG/ML VIAL IVP STA (12:29)
[2020-06-11] MEDS ORDERED: MORPHINE 2 MG/ML CARPUJECT IVP STA ×2 (12:29→13:57)
[2020-06-11 12:30] LABS: ALBUMIN 4.8 g/dL (3.2-5.5); ALBUMIN/GLOBULIN RATIO 1.7 (1.0-2.2); BILIRUBIN,TOTAL 0.8 mg/dL (0.2-1.0); CALCIUM 9.7 mg/dL (8.5-10.3); CREATININE 0.6 mg/dL (0.4-1.0); TOTAL PROTEIN 7.7 g/dL (6.7-8.2)
[2020-06-11] MEDS ORDERED: ONDANSETRON 4 MG/2 ML VIAL IVP STA (12:41)
--- NOTE | 2020-06-11 12:57 | ED Physician Documentation ---
PD HPI ABD PAIN - Stated complaint Stated Complaint: ABD PX/HAND BACK FOOT PX - Chief complaint Chief Complaint: Abd Pain - History obtained from History obtained from: Patient - History of Present Illness Timing - onset: Today Timing - duration: Hours (2) Timing - details: Abrupt onset Pain level max: 10 Pain level now: 10 Quality: Aching, Pain Location: All over / everywhere Improved by: Other (nothing) Worsened by: Other (nothing) Associated symptoms: Nausea, Vomiting. No: Fever Recently seen: Not recently seen - Additional information Additional information: 44-year-old female states that she had nausea and vomiting started this morning. She has been out of clonazepam for the past 2 days. Denies any marijuana use. Does have a history of C-sections in the past. No other abdominal surgeries. No fevers. No chills. Review of Systems Ten Systems: 10 systems reviewed and negative Constitutional: denies: Fever, Chills Nose: denies: Rhinorrhea / runny nose, Congestion GI: reports: Abdominal Pain, Nausea, Vomiting. 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 HEENT: Tonsil/Adenoidectomy - Present Medications Home Medications: Ambulatory Orders Medication Instructions Recorded Confirmed buPROPion HCL [Bupropion HCl] 100 mg PO BID 11/21/15 06/11/20 Albuterol Sulf [Ventolin Hfa 1 - 2 puffs INH Q4HR PRN #1 inhaler 08/31/17 06/11/20 Inhaler] Fluticasone 44 Mcg [Flovent] 1 puffs INH Q6HR PRN 04/23/18 06/11/20 Quetiapine Fumarate [Seroquel] 400 mg PO QPM #7 tablet 04/09/19 buPROPion HCl [Wellbutrin Sr] 200 mg PO DAILY #7 tab.er.12h 04/09/19 06/11/20 Acetaminophen 650 mg PO Q6HR PRN 06/11/20 06/11/20 - Allergies Allergies/Adverse Reactions: Allergies Allergy/AdvReac Type Severity Reaction Status Date / Time doxycycline Allergy Rash Verified 06/11/20 11:20 ketorolac tromethamine * Allergy Unknown Verified 06/11/20 11:20 [From Toradol] - Social History Does the pt smoke?: No Smoking Status: Never smoker Does the pt drink ETOH?: No Does the pt have substance abuse?: No - Immunizations Immunizations are current?: Yes Immunizations: TDAP >10years/unknown - POLST Patient has POLST: No PD ED PE NORMAL - Vitals Vital signs reviewed: Yes - General General: Alert and oriented X 3, No acute distress - HEENT HEENT: Moist mucous membranes - Neck Neck: Supple, no meningeal sign - Cardiac Cardiac: RRR, Strong equal pulses - Respiratory Respiratory: No respiratory distress, Clear bilaterally - Abdomen Abdomen: Other (Diffuse tenderness to palpation without peritoneal signs) - Derm Derm: Warm and dry - Extremities Extremities: No edema, No calf tenderness / cord - Neuro Neuro: Alert and oriented X 3 - Psych Psych: Normal mood, Normal affect Results - Vitals Vitals: Vital Signs - 24 hr 06/11/20 06/11/20 06/11/20 11:16 12:55 13:23 Temperature 36.1 C L Heart Rate 71 58 L 59 L Respiratory 22 18 16 Rate Blood Pressure 133/89 H 133/85 H 125/82 H O2 Saturation 99 100 99 06/11/20 06/11/20 13:30 14:00 Temperature Heart Rate 58 L 67 Respiratory 18 18 Rate Blood Pressure 123/80 125/102 H O2 Saturation 100 100 Oxygen O2 Source Room air - Labs Labs: Laboratory Tests 06/11/20 06/11/20 11:58 11:58 WBC 13.6 H RBC 4.55 Hgb 12.3 Hct 38.1 MCV 83.7 MCH 27.0 MCHC 32.3 RDW 14.9 Plt Count 369 MPV 8.9 Neut # (Auto) 11.1 H Lymph # (Auto) 1.5 [place] # (Auto) 0.8 Eos # (Auto) 0.1 Baso # (Auto) 0.1 Absolute Nucleated RBC 0.00 Nucleated RBC % 0.0 Sodium 136 Potassium 3.1 L Chloride 97 L Carbon Dioxide 22 Anion Gap 17.0 H BUN 10 Creatinine 0.6 Estimated GFR (MDRD) 109 Glucose 115 H Calcium 9.7 Total Bilirubin 0.8 AST 47 H ALT 31 Alkaline Phosphatase 43 Total Protein 7.7 Albumin 4.8 Globulin 2.9 Albumin/Globulin Ratio 1.7 Lipase 32 - Rads (name of study) CT abdomen pelvis Radiology: Prelim report reviewed, EMP read contemporaneously, See rad report PD MEDICAL DECISION MAKING - ED course Complexity details: reviewed results, re-evaluated patient, considered differential, d/w patient, d/w business travel consultant ED course: 44-year-old female presents to the emergency department with abdominal pain of acute onset today. Appears to have a bowel obstruction secondary to inflammation of the terminal ileum. She does not have a history of inflammatory bowel disease. No fevers. No diarrhea. Discussed the case with Dr. Williamson, general surgery who will consult. Discussed the case with Dr. Lara, hospitalist who accepts. NG tube was placed. This helped her pain and vomiting. This document was made in part using voice recognition software. While efforts are made to proofread this document, sound alike and grammatical errors may occur. Thickening and hyperenhancement of the terminal ileum with a few borderline dilated loops of small bowel. Findings may be infectious or inflammatory in nature with a low-grade resultant obstruction. Close clinical follow-up is recommended to help exclude early/developing complete small bowel obstruction. Bilateral ovarian hypodensities measuring up to 4.7 cm on the right, presumably simple cysts. Pelvic ultrasound could be considered if pain localizes to the right lower quad rant or right pelvis. Departure - Departure Disposition: 66 [facility] DC/Xfer Clinical Impression: Small bowel obstruction Condition: Stable
[2020-06-11] MEDS ORDERED: IOVERSOL 320 100 ML VIAL IVP ONE ×2 (13:13→14:14)
--- NOTE | 2020-06-11 13:28 | CT Report ---
PROCEDURE: Abdomen/Pelvis W INDICATIONS: Sudden onset diffuse abdominal pain CONTRAST: IV CONTRAST: Optiray 320 ml: 100 PO CONTRAST: *NO PO CONTRAST TECHNIQUE: After the administration of intravenous contrast, 5 mm thick sections acquired from the diaphragms to the symphysis. 5 mm thick coronal and sagittal reformats were acquired. For radiation dose reducti on, the following was used: automated exposure control, adjustment of mA and/or kV according to rebeca ent size. COMPARISON: None. FINDINGS: Image quality: Excellent. ABDOMEN: Lung bases: Lung bases are clear. Heart size is normal. Solid organs: Liver and spleen are normal in size and enhancement. Gallbladder is normal. Biliary system is non dilated. Pancreas enhances normally. No adrenal nodules. Kidneys demonstrate normal size and enhancement, without hydronephrosis. Peritoneum and bowel: There are several loops of small bowel which measure up to 3.5 cm in maximum ca liber and demonstrate mild mucosal hyperenhancement. The distal 15-20 cm of small bowel including the terminal ileum is decompressed with mucosal hyperenhancement. Appendix is not discretely visualized. There is no free fluid or free air. The colon is unremarkable. Nodes and vessels: No retroperitoneal or mesenteric adenopathy by size criteria. Aorta and inferior vena cava are normal in size. Miscellaneous: No ventral hernias. PELVIS: Genitourinary: Bladder wall thickness is normal. Miscellaneous: No inguinal hernias or adenopathy. Bones: No suspicious bony lesions. No vertebral body compression fractures. IMPRESSION: Thickening and hyperenhancement of the terminal ileum with a few borderline dilated loops of small gurmeet wel. Findings may be infectious or inflammatory in nature with a low-grade resultant obstruction. Savanah se clinical follow-up is recommended to help exclude early/developing complete small bowel obstructio n. Bilateral ovarian hypodensities measuring up to 4.7 cm on the right, presumably simple cysts. Pelvic ultrasound could be considered if pain localizes to the right lower quadrant or right pelvis. Reviewed by: Darinel Rodrigues MD on 06/11/2020 1:27 PM PST Approved by: Darinel Rodrigues MD on 06/11/2020 1:27 PM PST Station ID: [id number]
[2020-06-11] MEDS ORDERED: SODIUM CHLORIDE 0.9% 1,000 ML IV STA (13:51)
[2020-06-11] MEDS ORDERED: LIDOCAINE TOPICAL 4% 50 ML BOTTLE MM STA (14:16)
[2020-06-11] MEDS: D5NS W/20 MEQ KCL 1,000 ML IV SCH (16:27)
--- NOTE | 2020-06-11 16:33 | CONSULTATION NOTE ---
Referring Provider Name of Referring Provider:: Cruz (Hospitalist Service) History of Present Illness - Admitted From Admitted From:: Home - History Obtained From Records Reviewed: EMR History obtained from: Patient and EMR Exam Limitations: Patient sensorium depressed secondary psychotropic and hypnotic Rx dosed - History of Present Illness HPI Comment/Other: Poor historian. 44-year-old female presenting with abdominal pain and imaging concerning for terminal ileitis. No personal or family history of inflammatory bowel disease. Surgical consult requested through the emergency room patient admitted to the hospital service. Patient with no prior history of colonoscopy. Per review of the records the patient has history of substance abuse. 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: reports: section HEENT: reports: Tonsil/Adenoidectomy - POLST Patient has POLST: No Meds/Allgy - Home Medications Home Medications: Ambulatory Orders Medication Instructions Recorded Confirmed Albuterol Sulf [Ventolin Hfa 1 - 2 puffs INH Q4HR PRN #1 inhaler 08/31/17 06/11/20 Inhaler] Quetiapine Fumarate [Seroquel] 400 mg PO QPM #7 tablet 04/09/19 06/11/20 Acetaminophen 650 mg PO Q6HR PRN 06/11/20 06/11/20 Cyanocobalamin (Vitamin B-12) 1,000 mcg PO DAILY 06/11/20 06/11/20 [Vitamin B-12] Dextroamphetamine/Amphetamine 30 mg PO TID 06/11/20 06/11/20 [Adderall 30 mg Tablet] Fluticasone 110 Mcg [Flovent] 2 puffs INH BID 06/11/20 06/11/20 Glucosam/Chondr-Msm6/Manganese 1 cap PO DAILY 06/11/20 06/11/20 [Glucosamine-Chondroitin Sftgl] Levetiracetam [Keppra] 500 mg PO BID 06/11/20 06/11/20 buPROPion HCL [Bupropion HCl Sr] 150 mg PO BID 06/11/20 06/11/20 clonazePAM [Klonopin] 1 mg PO DAILY PRN 06/11/20 06/11/20 - Allergies Allergies/Adverse Reactions: Allergies Allergy/AdvReac Type Severity Reaction Status Date / Time doxycycline Allergy Rash Verified 06/11/20 11:20 ketorolac tromethamine * Allergy Unknown Verified 06/11/20 11:20 [From Toradol] Review of Systems - Constitutional Constitutional: reports: Fatigue - Gastrointestinal Gastrointestinal: reports: Nausea, Vomiting Exam - Vital Signs Vital Signs: Vital Signs x48h Temp Pulse Pulse Resp BP BP Pulse Ox 06/11/20 16:29 36.4 C L 70 20 100 06/11/20 16:00 36.4 C L 76 20 128/73 06/11/20 15:30 79 18 125/70 100 06/11/20 15:00 80 18 134/80 H 100 06/11/20 14:00 67 18 125/102 H 100 06/11/20 13:30 58 L 18 123/80 100 06/11/20 13:23 59 L 16 125/82 H 99 06/11/20 12:55 58 L 18 133/85 H 100 06/11/20 11:16 36.1 C L 71 22 133/89 H 99 - Physical Exam General Appearance: positive: No acute distress, Lethargic Eyes Bilateral: positive: Normal inspection, PERRL, EOMI ENT: positive: ENT inspection nml Neck: positive: Nml inspection Respiratory: positive: Chest non-tender, No respiratory distress, Breath sounds nml. negative: Wheezes, Rales, Rhonchi Cardiovascular: positive: Regular rate & rhythm Abdomen: positive: Tenderness. negative: Guarding, Rebound Rectal: positive: Other (Deferred) Skin: positive: Color nml Extremities: positive: Non-tender, Full ROM, Nml appearance Neurologic/Psychiatric: positive: Oriented x3, CN's nml (2-12), Motor nml Conclusion and Plan - Lab Results Laboratory Results 06/11/20 11:58: Sodium 136, Potassium 3.1 L, Chloride 97 L, Carbon Dioxide 22, Anion Gap 17.0 H, BUN 10, Creatinine 0.6, Estimated GFR (MDRD) 109, Glucose 115 H, Calcium 9.7, Total Bilirubin 0.8, AST 47 H, ALT 31, Alkaline Phosphatase 43, Total Protein 7.7, Albumin 4.8, Globulin 2.9, Albumin/Globulin Ratio 1.7, Lipase 32 06/11/20 11:58: WBC 13.6 H, RBC 4.55, Hgb 12.3, Hct 38.1, MCV 83.7, MCH 27.0, MCHC 32.3, RDW 14.9, Plt Count 369, MPV 8.9, Neut # (Auto) 11.1 H, Lymph # (Auto) 1.5, [place] # (Auto) 0.8, Eos # (Auto) 0.1, Baso # (Auto) 0.1, Absolute Nucleated RBC 0.00, Nucleated RBC % 0.0 - Diagnostic Imaging Results Diagnostic Imaging Results: positive: Final report reviewed Diagnostic Imaging Results Comments: Abdominal x-ray, repeat: Multiple loops of mildly dilated fluid and air-filled small bowel measuring up to 3.6 cm in diameter. Findings again may be related to an infectious versus inflammatory process with resultant low-grade obstruction. Moderate amount of fecal material seen in the ascending colon and hepatic flexure CT abdomen pelvis: Thickening and hyperenhancement of the terminal ileum with a few borderline dilated loops of small bowel. Findings may be infectious or inflammatory in nature with a low-grade result in obstruction. Close follow clinical follow-up is recommended to help exclude early developing complete small bowel obstruction. Bilateral ovarian hyperdensities measuring up to 4.7 cm on the right presumably simple cyst pelvic ultrasound could be considered if pain localized to the right lower quadrant or right pelvis - Diagnosis Diagnosis: 1. Small bowel obstruction. 2. Terminal ileitis concerning for Crohn's disease. 3. Severe abdominal discomfort - Plan Plan: 44-year-old female presents with small bowel obstruction with associated obstipation. Imaging concerning for inflammatory bowel disease favoring Crohn's disease in the setting of terminal ileitis. No history of recent sick contacts. No peritoneal signs at this time. Plan as follows: 1. Bowel rest, nasogastric decompression, IV fluid resuscitation. 2. Serial abdominal exams, plain film imaging, possible repeat imaging with CT and contrast challenge. 3. Would consider colonoscopy and ileoscopy for tissue biopsy to rule in Crohn's towards beginning immunomodulatory therapy starting with steroids. Long- term may be candidate for operative intervention in the setting of chronic ileal stricturing disease, however await stool studies and endoscopic biopsy results if done. 4. Stool studies and antibiotics as appropriate. 5. In the setting of the possible need for immunomodulatory therapy, patient would likely benefit from hepatitis panel, especially given her history of substance abuse, as well as QuantiFERON gold, before beginning any definitive biologic therapies.
[2020-06-11 16:45] LABS: MUDS CUTOFF CONCENTRATIONS CUTOFF CONC BELOW:
[2020-06-11 16:53] LABS: BILIRUBIN,URINE NEGATIVE (NEGATIVE); GLUCOSE, URINE (UA) NEGATIVE (NEGATIVE); KETONES,URINE (UA) >=80 mg/dL (NEGATIVE); LEUKOCYTE ESTERASE, URINE NEGATIVE (NEGATIVE); NITRITE,URINE NEGATIVE (NEGATIVE); OCCULT BLOOD,URINE NEGATIVE (NEGATIVE); PH,URINE 5.5 PH (5.0-7.5); PROTEIN,URINE NEGATIVE (NEGATIVE); UROBILINOGEN,URINE 0.2 (NORMAL) E.U./dL (NORMAL)
--- NOTE | 2020-06-11 16:55 | PHARMACY PROGRESS NOTE ---
- Best Possible Medication History Admit Date and Time: 06/11/20 1441 Processed by: Pharmacy Medication History completed: Yes Patient Interview: Completed Secondary Source(s): Physician records, Pharmacy records, Insurance records As the person ultimately responsible for medication therapy, providers are able to order a medication from an existing home medication list in [facility] via the "Reconcile Routine" prior to Confirmation of that medication by is support analyst. Such practice is discouraged except when the physician, in their clinical judgment, deems that a medical need exists for a medication without regard to previous use.
[2020-06-11 16:56] LABS: CLARITY,URINE CLEAR (CLEAR); HCG UR QUAL NEGATIVE
[2020-06-11 17:05] LABS: AMPHETAMINE SCREEN,URINE POSITIVE (NEGATIVE); BENZODIAZEPINES SCREEN, URINE POSITIVE (NEGATIVE); COCAINE SCREEN URINE NEGATIVE (NEGATIVE); METHADONE SCREEN, URINE NEGATIVE (NEGATIVE); METHAMPHETAMINES SCREEN, URINE NEGATIVE (NEGATIVE); OPIATE SCREEN, URINE POSITIVE (NEGATIVE); OXYCODONE SCREEN, URINE NEGATIVE (NEGATIVE); PROPOXYPHENE SCREEN, URINE NEGATIVE (NEGATIVE); TRICYCLIC ANTIDEPRESSANT,URINE POSITIVE (NEGATIVE)
[2020-06-11] MEDS: MORPHINE 2 MG/ML CARPUJECT IVP PRN ×2 (17:19→19:20)
[2020-06-11] MEDS: SODIUM CHLORIDE FLUSH 0.9% 10 ML SYRINGE IVP SCH (17:20)
[2020-06-11] MEDS: BENZOCAINE/MENTHOL LOZENGE MM PRN (17:33)
[2020-06-11] MEDS: PROCHLORPERAZINE 10 MG/2 ML VIAL IVP PRN (17:33)
[2020-06-11] MEDS: SODIUM CHLORIDE FLUSH 0.9% 10 ML SYRINGE IVP PRN (17:34)
[2020-06-11] MEDS ORDERED: clonazePAM 0.5 MG TABLET PO PRN (18:08)
[2020-06-11] MEDS: Dextroamphetamine/Amphetamine [Adderall] 30 MG Tablet PO SCH (19:04)
[2020-06-11] MEDS: POTASSIUM CHLOR 10 MEQ/100 ML 10 MEQ/100 ML BAG IV SCH ×4 (19:46→22:56)
[2020-06-11] MEDS: levETIRAcetam 250 MG TABLET PO SCH (20:54)
[2020-06-11] MEDS: buPROPion SR 150 MG TABLET PO SCH (20:54)
[2020-06-11] MEDS: QUEtiapine 100 MG TABLET PO SCH (20:55)
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
[2020-06-12] MEDS: SODIUM CHLORIDE FLUSH 0.9% 10 ML SYRINGE IVP SCH ×3 (02:50→16:42)
[2020-06-12] MEDS: MORPHINE 2 MG/ML CARPUJECT IVP PRN ×4 (02:51→21:49)
[2020-06-12 05:32] LABS: BASOPHILS % (AUTO) 0.5 %; EOSINOPHILS % (AUTO) 0.3 %; HGB - HEMOGLOBIN 11.1 g/dL (12.0-16.0); LYMPHOCYTES % (AUTO) 13.6 %; MEAN CORPUSCULAR HEMOGLOBIN 27.1 pg (27.0-31.0); MEAN CORPUSCULAR HGB CONC 32.5 g/dL (32.0-36.0); MEAN CORPUSCULAR VOLUME 83.6 fL (81.0-99.0); MEAN PLATELET VOLUME 8.7 fL (7.9-10.8); MONOCYTES # (AUTO) 0.6 10^3/uL (0.0-1.0); MONOCYTES % (AUTO) 7.9 %; NEUTROPHILS # (AUTO) 5.9 10^3/uL (1.5-6.6); NEUTROPHILS % (AUTO) 77.3 %; PLT - PLATELET COUNT 284 10^3/uL (130-450); RED BLOOD COUNT 4.09 10^6/uL (4.20-5.40); RED CELL DISTRIBUTION WIDTH 15.3 % (12.0-15.0); WHITE BLOOD COUNT 7.6 x10^3/uL (4.8-10.8)
[2020-06-12 05:42] LABS: CALCIUM 8.4 mg/dL (8.5-10.3); CREATININE 0.6 mg/dL (0.4-1.0)
[2020-06-12] MEDS: Dextroamphetamine/Amphetamine [Adderall] 30 MG Tablet PO SCH ×3 (06:58→21:42)
[2020-06-12] MEDS: D5NS W/20 MEQ KCL 1,000 ML IV SCH ×2 (07:01→21:36)
[2020-06-12] MEDS: PANTOPRAZOLE 40 MG VIAL IVP SCH (07:05)
--- NOTE | 2020-06-12 07:16 | XRAY Report ---
PROCEDURE: Chest 1 View X-Ray INDICATIONS: NG tube placement TECHNIQUE: One view of the chest was acquired. COMPARISON: 12/16/2018 FINDINGS: Surgical changes and devices: Nasogastric tube is in place with the distal tip projecting in the left upper abdomen. Distal side-port appears to be below the gastroesophageal junction.. Lungs and pleura: No pleural effusions or pneumothorax. Lungs are clear. Mediastinum: Mediastinal contours appear normal. Heart size is normal. Bones and chest wall: No suspicious bony lesions. Overlying soft tissues appear unremarkable. IMPRESSION: Chest without acute cardiopulmonary abnormalities. Nasogastric tube appears in appropriate position. No significant discrepancy with initial interpretation by overnight radiologist. Reviewed by: Jaycob Rodriguez MD on 06/12/2020 7:14 AM PST Approved by: Jaycob Rodriguez MD on 06/12/2020 7:14 AM PST Station ID: [id number]
[2020-06-12] MEDS: POTASSIUM CHLOR 10 MEQ/100 ML 10 MEQ/100 ML BAG IV SCH ×2 (08:27→10:07)
[2020-06-12] MEDS: levETIRAcetam 250 MG TABLET PO SCH ×2 (08:30→21:42)
[2020-06-12] MEDS: buPROPion SR 150 MG TABLET PO SCH ×2 (08:30→21:42)
[2020-06-12] MEDS: BENZOCAINE/MENTHOL LOZENGE MM PRN (08:30)
[2020-06-12] MEDS: CYANOCOBALAMIN 500 MCG TABLET PO SCH (08:30)
[2020-06-12] MEDS: ACETAMINOPHEN 325 MG TABLET PO PRN ×2 (08:43→15:59)
[2020-06-12] MEDS ORDERED: PHENOL THROAT SPRAY 177 ML MM PRN (08:46)
[2020-06-12] MEDS: SODIUM CHLORIDE FLUSH 0.9% 10 ML SYRINGE IVP PRN ×2 (09:27→12:30)
[2020-06-12] MEDS: ONDANSETRON 4 MG/2 ML VIAL IVP PRN (12:32)
--- NOTE | 2020-06-12 12:35 | XRAY Report ---
PROCEDURE: Abdomen 2 View X-Ray INDICATIONS: SBO TECHNIQUE: 2 views of the abdomen were acquired. COMPARISON: CT abdomen and pelvis dated 06/11/2020 FINDINGS: Surgical changes and devices: None. Bowel: No pneumoperitoneum. Multiple loops of air-filled small bowel measuring up to 3.[address], predominantly seen in the left abdomen. A few differential air-fluid levels noted more inferiorl y. Moderate fecal material seen in the region of the ascending colon and hepatic flexure. Paucity of air in the rectum. Soft tissues: No masses; visualized solid organ contours appear normal in size. No suspicious abdom inal calcifications. Bones: No suspicious bony abnormalities. IMPRESSION: Multiple loops of mildly dilated fluid and air-filled small bowel measuring up to 3.6 cm in diameter . Findings again may be related to an infectious versus inflammatory process with resultant low grade obstruction. Moderate amount of fecal material seen in the ascending colon and hepatic flexure. Reviewed by: Jaycob Rodriguez MD on 06/12/2020 12:33 PM PST Approved by: Jaycob Rodriguez MD on 06/12/2020 12:33 PM PST Station ID: [id number]
[2020-06-12] MEDS: PROCHLORPERAZINE 10 MG/2 ML VIAL IVP PRN (16:00)
--- NOTE | 2020-06-12 16:01 | PROVIDER PROGRESS NOTE ---
Assessment/Plan - Problem List (1) Partial small bowel obstruction Assessment/Plan: CT And x-ray still show small bowel obstruction. Patient take NG tube off by her self. Patient still complains abdominal pain, no gas or stool passed. complain nausea but no vomiting yet. Continue NPO, continue intravenous IV fluids with D5. Pain control. Treating underlying infection colitis and inflammation. Continue consult with general surgeon. Encourage patient ambulation, reduce opiates as possible (2)infectious colitis CT And x-ray still show small bowel obstruction resultant from Infection and inflammation. Patient still complaint abdominal pain, Nausea. We will treat infection with Zosyn and add prednison for inflammation. (3) History of substance abuse Conclusion/Plan: stable, it seems pt has no withdrawal symptoms now. (4) Anxiety disorder Conclusion/Plan: we will resume her bupropion, Klonopin, and Seroquel. Also have social work see her. (5) Hypokalemia Conclusion/Plan: Supplement IV. Recheck in the morning. (6)hx of asthma Patient has a history of asthma, No acute exacerbation. will resume home Pulmicort, and albuterol as needed (7)hx of seizure Patient has a history of seizure, resume home Keppra, will check Keppra serum concentration - Current Meds Current Meds: Current Medications Generic Name Dose Route Start Last Admin Trade Name Freq PRN Reason Stop Dose Admin Acetaminophen 650 mg 06/11/20 17:33 06/12/20 08:43 Tylenol PO 650 mg Q6HR PRN Administration PAIN Bupropion HCl 150 mg 06/11/20 21:00 06/12/20 08:30 Wellbutrin Sr PO 150 mg BID SARAH Administration Cyanocobalamin 1,000 mcg 06/12/20 09:00 06/12/20 08:30 Vitamin B-12 PO 1,000 mcg DAILY SARAH Administration Potassium Chloride/Dextrose/Sod Cl 1,000 mls @ 100 mls/hr 06/11/20 16:00 06/12/20 12:30 IV 100 mls/hr .Q10H SARAH Infusion Levetiracetam 500 mg 06/11/20 21:00 06/12/20 08:30 Keppra PO 500 mg BID SARAH Administration Morphine Sulfate 2 mg 06/11/20 19:33 06/12/20 14:18 Morphine (Carpuject) IVP 2 mg Q4H PRN Administration Pain 8 to 10 Ondansetron HCl 4 mg 06/11/20 14:41 06/12/20 12:32 Zofran Inj IVP 4 mg Q6HR PRN Administration Nausea / Vomiting Pantoprazole Sodium 40 mg 06/12/20 07:00 06/12/20 07:05 Protonix IVP 40 mg QDAC SARAH Administration Dextroamphetamine/ 1 each 06/11/20 19:00 06/12/20 14:18 Amphetamine [ PO 1 each Adderall] 30 Mg TID SARAH Administration Tablet Prochlorperazine Edisylate 10 mg 06/11/20 14:41 06/11/20 17:33 Compazine Inj IVP 10 mg Q6HR PRN Administration Nausea / Vomiting Quetiapine Fumarate 400 mg 06/11/20 21:00 06/11/20 20:55 Seroquel PO 400 mg QPM SARAH Administration Sodium Chloride 10 ml 06/11/20 14:41 06/12/20 12:30 Normal Saline Flush 0.9% IVP 10 ml PRN PRN Administration NEEDED PER PROVIDER ORDERS Sodium Chloride 10 ml 06/11/20 17:00 06/12/20 08:30 Normal Saline Flush 0.9% IVP 10 ml 0100,0900,1700 SARAH Administration Throat Lozenges 1 lozenge 06/11/20 17:07 06/12/20 08:30 Cepacol MM 1 lozenge Q2HR PRN Administration Throat pain - Lab Result Fish Bone Diagrams: 06/12/20 05:21 06/12/20 05:21 - Additional Planning My Orders: My Active Orders 06/12/20 08:46 Phenol [Chloraseptic] 2 sprays MM Q2HR PRN 06/12/20 09:21 Miscellaenous Nursing Order [RC] PRN 06/12/20 11:34 Out of bed 6+ hours [RC] QID 06/12/20 16:00 Piperacillin/Tazobactam [Zosyn] 3.375 gm Sodium Chloride 0.9% Minibag [Normal Saline 0.9% Minibag] 100 ml IV Q6H predniSONE [Deltasone] 40 mg PO DAILYWM 06/13/20 08:00 Multivitamin W/Minerals [Theragran M] 1 tab PO DAILYWM Subjective - Subjective Patient Reports: Abdominal Pain, Nausea Objective Vital Signs: Vital Signs - 24 hr 06/11/20 06/11/20 06/11/20 16:00 16:29 19:44 Temperature 36.4 C L 36.4 C L Heart Rate 70 Heart Rate [ 76 Brachial] Respiratory 20 20 18 Rate Blood Pressure 128/73 [Right Brachial artery] O2 Saturation 99 100 06/12/20 06/12/20 06/12/20 00:00 08:00 15:47 Temperature 37.1 C 37.2 C 37.0 C Heart Rate Heart Rate [ 109 H 84 80 Brachial] Respiratory 18 18 16 Rate Blood Pressure 120/65 130/75 125/77 [Right Brachial artery] O2 Saturation 96 97 98 Oxygen O2 Source Room air I&O (Last 24 Hrs): Intake and Output Totals x24h 06/10/20 06/11/20 06/12/20 23:59 23:59 23:59 Intake Total 1127.5 1226.667 Output Total 475 850 Balance 652.5 376.667 General: Alert, Oriented x3, Mild distress HEENT: Atraumatic Neck: Supple Lymphatic: no adenopathy Neuro: Alert, Non Focal, Oriented Times 3 Cardiovascular: Regular rate, Normal S1, Normal S2 Respiratory: Chest non-tender, No respiratory distress, Breath sounds nml Abdomen: Normal bowel sounds, Soft, No tenderness Extremities: Normal pulses - Results Results: Laboratory Results WBC 7.6 x10^3/uL (4.8-10.8) 06/12/20 05:21 RBC 4.09 10^6/uL (4.20-5.40) L 06/12/20 05:21 Hgb 11.1 g/dL (12.0-16.0) L 06/12/20 05:21 Hct 34.2 % (37.0-47.0) L 06/12/20 05:21 MCV 83.6 fL (81.0-99.0) 06/12/20 05:21 MCH 27.1 pg (27.0-31.0) 06/12/20 05:21 MCHC 32.5 g/dL (32.0-36.0) 06/12/20 05:21 RDW 15.3 % (12.0-15.0) H 06/12/20 05:21 Plt Count 284 10^3/uL (130-450) 06/12/20 05:21 MPV 8.7 fL (7.9-10.8) 06/12/20 05:21 Neut # (Auto) 5.9 10^3/uL (1.5-6.6) 06/12/20 05:21 Lymph # (Auto) 1.0 10^3/uL (1.5-3.5) L 06/12/20 05:21 Mcleod # (Auto) 0.6 10^3/uL (0.0-1.0) 06/12/20 05:21 Eos # (Auto) 0.0 10^3/uL (0.0-0.7) 06/12/20 05:21 Baso # (Auto) 0.0 10^3/uL (0.0-0.1) 06/12/20 05:21 Absolute Nucleated RBC 0.00 x10^3/uL 06/12/20 05:21 Nucleated RBC % 0.0 /100WBC 06/12/20 05:21 Sodium 136 mmol/L (135-145) 06/12/20 05:21 Potassium 3.3 mmol/L (3.5-5.0) L 06/12/20 05:21 Chloride 106 mmol/L (101-111) 06/12/20 05:21 Carbon Dioxide 20 mmol/L (21-32) L 06/12/20 05:21 Anion Gap 10.0 (6-13) 06/12/20 05:21 BUN 8 mg/dL (6-20) 06/12/20 05:21 Creatinine 0.6 mg/dL (0.4-1.0) 06/12/20 05:21 Estimated GFR (MDRD) 109 (>89) 06/12/20 05:21 Glucose 141 mg/dL (70-100) H 06/12/20 05:21 Calcium 8.4 mg/dL (8.5-10.3) L 06/12/20 05:21 Total Bilirubin 0.8 mg/dL (0.2-1.0) 06/11/20 11:58 AST 47 IU/L (10-42) H 06/11/20 11:58 ALT 31 IU/L (10-60) 06/11/20 11:58 Alkaline Phosphatase 43 IU/L (42-121) 06/11/20 11:58 Total Protein 7.7 g/dL (6.7-8.2) 06/11/20 11:58 Albumin 4.8 g/dL (3.2-5.5) 06/11/20 11:58 Globulin 2.9 g/dL (2.1-4.2) 06/11/20 11:58 Albumin/Globulin Ratio 1.7 (1.0-2.2) 06/11/20 11:58 Lipase 32 U/L (22-51) 06/11/20 11:58 Urine Color YELLOW 06/11/20 16:10 Urine Clarity CLEAR (CLEAR) 06/11/20 16:10 Urine pH 5.5 PH (5.0-7.5) 06/11/20 16:10 Ur Specific [place] 1.010 (1.002-1.030) 06/11/20 16:10 Urine Protein NEGATIVE mg/dL (NEGATIVE) 06/11/20 16:10 Urine Glucose (UA) NEGATIVE mg/dL (NEGATIVE) 06/11/20 16:10 Urine Ketones >=80 mg/dL (NEGATIVE) H 06/11/20 16:10 Urine Occult Blood NEGATIVE (NEGATIVE) 06/11/20 16:10 Urine Nitrite NEGATIVE (NEGATIVE) 06/11/20 16:10 Urine Bilirubin NEGATIVE (NEGATIVE) 06/11/20 16:10 Urine Urobilinogen 0.2 (NORMAL) E.U./dL (NORMAL) 06/11/20 16:10 Ur Leukocyte Esterase NEGATIVE (NEGATIVE) 06/11/20 16:10 Ur Microscopic Review NOT INDICATED 06/11/20 16:10 Urine Culture Comments NOT INDICATED 06/11/20 16:10 Urine HCG, Qual NEGATIVE 06/11/20 16:10 Urine Opiates Screen POSITIVE (NEGATIVE) H 06/11/20 16:10 Ur Oxycodone Screen NEGATIVE (NEGATIVE) 06/11/20 16:10 Urine Methadone Screen NEGATIVE (NEGATIVE) 06/11/20 16:10 Ur Propoxyphene Screen NEGATIVE (NEGATIVE) 06/11/20 16:10 Ur Barbiturates Screen NEGATIVE (NEGATIVE) 06/11/20 16:10 Ur Tricyclics Screen POSITIVE (NEGATIVE) H 06/11/20 16:10 Ur Phencyclidine Scrn NEGATIVE (NEGATIVE) 06/11/20 16:10 Ur Amphetamine Screen POSITIVE (NEGATIVE) H 06/11/20 16:10 U Methamphetamines Scrn NEGATIVE (NEGATIVE) 06/11/20 16:10 U Benzodiazepines Scrn POSITIVE (NEGATIVE) H 06/11/20 16:10 Urine Cocaine Screen NEGATIVE (NEGATIVE) 06/11/20 16:10 U Cannabinoids Screen POSITIVE (NEGATIVE) H 06/11/20 16:10 ABX Reporting Has patient been on IV antibiotics over the past 48 hours?: Yes Current Medications - Current Medications Current Medications: Active Medications Acetaminophen (Tylenol) 650 mg PO Q6HR PRN PRN Reason: PAIN Last Admin: 06/12/20 15:59 Dose: 650 mg Documented by: Albuterol () 2.5 mg INH RTQ4H PRN PRN Reason: Wheezing Budesonide (Pulmicort) 0.5 mg INH RTBID SARAH Bupropion HCl (Wellbutrin Sr) 150 mg PO BID [facility] Last Admin: 06/12/20 08:30 Dose: 150 mg Documented by: Clonazepam (Klonopin) 1 mg PO DAILY PRN PRN Reason: Anxiety Cyanocobalamin (Vitamin B-12) 1,000 mcg PO DAILY SARAH Last Admin: 06/12/20 08:30 Dose: 1,000 mcg Documented by: Potassium Chloride/Dextrose/Sod Cl () 1,000 mls @ 100 mls/hr IV .Q10H [facility] Last Infusion: 06/12/20 12:30 Dose: 100 mls/hr Documented by: Piperacillin Sod/Tazobactam (Sod 3.375 gm/ Sodium Chloride) 100 mls @ 25 mls/hr IV Q8H [facility] Levetiracetam (Keppra) 500 mg PO BID [facility] Last Admin: 06/12/20 08:30 Dose: 500 mg Documented by: Morphine Sulfate (Morphine (Carpuject)) 2 mg IVP Q4H PRN PRN Reason: Pain 8 to 10 Last Admin: 06/12/20 14:18 Dose: 2 mg Documented by: Multivitamins/Minerals (Theragran M) 1 tab PO DAILYWM [facility] Ondansetron HCl (Zofran Inj) 4 mg IVP Q6HR PRN PRN Reason: Nausea / Vomiting Last Admin: 06/12/20 12:32 Dose: 4 mg Documented by: Pantoprazole Sodium (Protonix) 40 mg IVP QDAC [facility] Last Admin: 06/12/20 07:05 Dose: 40 mg Documented by: Dextroamphetamine/Amphetamine [ Adderall] 30 Mg Tablet 1 each PO TID [facility] Last Admin: 06/12/20 14:18 Dose: 1 each Documented by: Phenol/Menthol (Chloraseptic) 2 sprays MM Q2HR PRN PRN Reason: Throat Pain Prednisone (Deltasone) 40 mg PO DAILYWM [facility] Last Admin: 06/12/20 17:44 Dose: 40 mg Documented by: Prochlorperazine Edisylate (Compazine Inj) 10 mg IVP Q6HR PRN PRN Reason: Nausea / Vomiting Last Admin: 06/12/20 16:00 Dose: 10 mg Documented by: Quetiapine Fumarate (Seroquel) 400 mg PO QPM [facility] Last Admin: 06/11/20 20:55 Dose: 400 mg Documented by: Sodium Chloride (Normal Saline Flush 0.9%) 10 ml IVP PRN PRN PRN Reason: NEEDED PER PROVIDER ORDERS Last Admin: 06/12/20 12:30 Dose: 10 ml Documented by: Sodium Chloride (Normal Saline Flush 0.9%) 10 ml IVP 0100,0900,1700 [facility] Last Admin: 06/12/20 16:42 Dose: Not Given Documented by: Throat Lozenges (Cepacol) 1 lozenge MM Q2HR PRN PRN Reason: Throat pain Last Admin: 06/12/20 08:30 Dose: 1 lozenge Documented by: Acetaminophen 650 mg PO Q6HR PRN 06/11/20 Cyanocobalamin (Vitamin B-12) [Vitamin B-12] 1,000 mcg PO DAILY 06/11/20 Dextroamphetamine/Amphetamine [Adderall 30 mg Tablet] 30 mg PO TID 06/11/20 Fluticasone 110 Mcg [Flovent] 2 puffs INH BID 06/11/20 Glucosam/Chondr-Msm6/Manganese [Glucosamine-Chondroitin Sftgl] 1 cap PO DAILY 06/11/20 Levetiracetam [Keppra] 500 mg PO BID 06/11/20 buPROPion HCL [Bupropion HCl Sr] 150 mg PO BID 06/11/20 clonazePAM [Klonopin] 1 mg PO DAILY PRN 06/11/20
[2020-06-12] MEDS ORDERED: PIPERACILLIN/TAZOBACTAM 3.375 GM in SODIUM CHLORIDE 0.9% MINIBAG 100 ML IV ONE (17:00)
[2020-06-12] MEDS: predniSONE 20 MG TABLET PO SCH (17:44)
[2020-06-12] MEDS: BUDESONIDE 0.5 MG/2 ML NEB INH SCH (20:52)
[2020-06-12] MEDS: ALBUTEROL NEB 2.5 MG/3 ML INH PRN (20:52)
[2020-06-12] MEDS: PIPERACILLIN/TAZOBACTAM 3.375 GM in SODIUM CHLORIDE 0.9% MINIBAG 100 ML IV SCH (21:35)
[2020-06-12] MEDS: QUEtiapine 100 MG TABLET PO SCH (21:37)
[2020-06-13] MEDS: SODIUM CHLORIDE FLUSH 0.9% 10 ML SYRINGE IVP SCH ×3 (01:39→17:21)
[2020-06-13] MEDS: PIPERACILLIN/TAZOBACTAM 3.375 GM in SODIUM CHLORIDE 0.9% MINIBAG 100 ML IV SCH ×2 (05:28→12:35)
[2020-06-13] MEDS: MORPHINE 2 MG/ML CARPUJECT IVP PRN ×2 (05:32→14:04)
[2020-06-13 06:08] LABS: EOSINOPHILS % (AUTO) 1.9 %; HGB - HEMOGLOBIN 11.4 g/dL (12.0-16.0); LYMPHOCYTES % (AUTO) 9.8 %; MEAN CORPUSCULAR HEMOGLOBIN 27.2 pg (27.0-31.0); MEAN CORPUSCULAR HGB CONC 32.2 g/dL (32.0-36.0); MEAN CORPUSCULAR VOLUME 84.5 fL (81.0-99.0); MEAN PLATELET VOLUME 9.3 fL (7.9-10.8); MONOCYTES % (AUTO) 7.2 %; NEUTROPHILS % (AUTO) 81.1 %; PLT - PLATELET COUNT 290 10^3/uL (130-450); RED BLOOD COUNT 4.19 10^6/uL (4.20-5.40); RED CELL DISTRIBUTION WIDTH 15.2 % (12.0-15.0); WHITE BLOOD COUNT 4.3 x10^3/uL (4.8-10.8)
[2020-06-13 06:12] LABS: ABNORMAL LYMPHS % (MANUAL) 0 %
[2020-06-13 06:18] LABS: CALCIUM 8.5 mg/dL (8.5-10.3); CREATININE 0.5 mg/dL (0.4-1.0)
[2020-06-13] MEDS: Dextroamphetamine/Amphetamine [Adderall] 30 MG Tablet PO SCH ×3 (06:26→16:56)
[2020-06-13] MEDS: PANTOPRAZOLE 40 MG VIAL IVP SCH (06:26)
[2020-06-13 06:32] LABS: BAND NEUTROPHILS % (MANUAL) 7 %; DIFFERENTIAL COMMENT MANUAL DIFFERENTIAL; LYMPHOCYTES # (MANUAL) 0.3 10^3/uL (1.5-3.5); LYMPHOCYTES % (MANUAL) 6 %; MONOCYTES # (MANUAL) 0.2 10^3/uL (0.0-1.0); PLATELET ESTIMATE, MANUAL NORMAL (130-450,000) (NORMAL); RBC MORPHOLOGY (MULTIPLE) NORMAL APPEARANCE (NORMAL)
[2020-06-13] MEDS: D5NS W/20 MEQ KCL 1,000 ML IV SCH ×3 (06:59→18:07)
[2020-06-13] MEDS: BUDESONIDE 0.5 MG/2 ML NEB INH SCH ×2 (08:17→19:31)
[2020-06-13] MEDS: ALBUTEROL NEB 2.5 MG/3 ML INH PRN ×2 (08:19→17:21)
--- NOTE | 2020-06-13 09:16 | ANESTHESIA ---
Pre-Anesthesia VS, & Labs - Diagnosis Diagnosis 1. Small bowel obstruction 2. Terminal ileitis concerning for Crohn's disease 3. Severe abdominal discomfort - Procedure colonoscopy Vital Signs: Temp Pulse Resp BP Pulse Ox 36.6 C 78 16 117/73 98 06/13/20 07:38 06/13/20 08:19 06/13/20 08:19 06/13/20 07:38 06/13/20 07:38 Height: 5 ft 6 in Weight (kg): 71.5 kg Body Mass Index: 25.4 BMI Classification: Overweight - NPO >8 hours - Is Patient ?: No - Lab Results Current Lab Results: Laboratory Tests 06/13/20 05:37: Sodium 137, Potassium 3.7, Chloride 109, Carbon Dioxide 20 L, Anion Gap 8.0, BUN 7, Creatinine 0.5, Estimated GFR (MDRD) 135, Glucose 161 H, Calcium 8.5 06/13/20 05:37: WBC 4.3 L, RBC 4.19 L, Hgb 11.4 L, Hct 35.4 L, MCV 84.5, MCH 27.2, MCHC 32.2, RDW 15.2 H, Plt Count 290, MPV 9.3, Neut # (Auto) Not Reportable, Lymph # (Auto) Not Reportable, Lyman # (Auto) Not Reportable, Eos # (Auto) Not Reportable, Baso # (Auto) Not Reportable, Absolute Nucleated RBC Not Reportable, Total Counted 100, Band Neuts % (Manual) 7, Abnorm Lymph % (Manual) 0, Nucleated RBC % Not Reportable, Neutrophils # (Manual) 3.9, Lymphocytes # (Manual) 0.3 L, Monocytes # (Manual) 0.2, Eosinophils # (Manual) 0.0, Basophils # (Manual) 0.0, Differential Comment MANUAL DIFFERENTIAL, Platelet Estimate NORMAL (130-450,000), RBC Morph Micro Appear NORMAL APPEARANCE 06/12/20 05:21: Sodium 136, Potassium 3.3 L, Chloride 106, Carbon Dioxide 20 L, Anion Gap 10.0, BUN 8, Creatinine 0.6, Estimated GFR (MDRD) 109, Glucose 141 H, Calcium 8.4 L 06/12/20 05:21: WBC 7.6, RBC 4.09 L, Hgb 11.1 L, Hct 34.2 L, MCV 83.6, MCH 27.1, MCHC 32.5, RDW 15.3 H, Plt Count 284, MPV 8.7, Neut # (Auto) 5.9, Lymph # (Auto) 1.0 L, Lyman # (Auto) 0.6, Eos # (Auto) 0.0, Baso # (Auto) 0.0, Absolute Nucleated RBC 0.00, Nucleated RBC % 0.0 06/11/20 16:10: Urine Opiates Screen POSITIVE H, Ur Oxycodone Screen NEGATIVE, Urine Methadone Screen NEGATIVE, Ur Propoxyphene Screen NEGATIVE, Ur Barbiturates Screen NEGATIVE, Ur Tricyclics Screen POSITIVE H, Ur Phencyclidine Scrn NEGATIVE, Ur Amphetamine Screen POSITIVE H, U Methamphetamines Scrn NEGATIVE, U Benzodiazepines Scrn POSITIVE H, Urine Cocaine Screen NEGATIVE, U Cannabinoids Screen POSITIVE H 06/11/20 11:58: Sodium 136, Potassium 3.1 L, Chloride 97 L, Carbon Dioxide 22, Anion Gap 17.0 H, BUN 10, Creatinine 0.6, Estimated GFR (MDRD) 109, Glucose 115 H, Calcium 9.7, Total Bilirubin 0.8, AST 47 H, ALT 31, Alkaline Phosphatase 43, Total Protein 7.7, Albumin 4.8, Globulin 2.9, Albumin/Globulin Ratio 1.7, Lipase 32 06/11/20 11:58: WBC 13.6 H, RBC 4.55, Hgb 12.3, Hct 38.1, MCV 83.7, MCH 27.0, MCHC 32.3, RDW 14.9, Plt Count 369, MPV 8.9, Neut # (Auto) 11.1 H, Lymph # (Auto) 1.5, Lyman # (Auto) 0.8, Eos # (Auto) 0.1, Baso # (Auto) 0.1, Absolute Nucleated RBC 0.00, Nucleated RBC % 0.0 Fish Bones: 06/13/20 05:37 06/13/20 05:37 Home Medications and Allergies Home Medications: Ambulatory Orders Acetaminophen 650 mg PO Q6HR PRN 06/11/20 Cyanocobalamin (Vitamin B-12) [Vitamin B-12] 1,000 mcg PO DAILY 06/11/20 Dextroamphetamine/Amphetamine [Adderall 30 mg Tablet] 30 mg PO TID 06/11/20 Fluticasone 110 Mcg [Flovent] 2 puffs INH BID 06/11/20 Glucosam/Chondr-Msm6/Manganese [Glucosamine-Chondroitin Sftgl] 1 cap PO DAILY 06/11/20 Levetiracetam [Keppra] 500 mg PO BID 06/11/20 buPROPion HCL [Bupropion HCl Sr] 150 mg PO BID 06/11/20 clonazePAM [Klonopin] 1 mg PO DAILY PRN 06/11/20 Active Medications Acetaminophen (Tylenol) 650 mg PO Q6HR PRN PRN Reason: PAIN Last Admin: 06/12/20 15:59 Dose: 650 mg Documented by: Albuterol () 2.5 mg INH RTQ4H PRN PRN Reason: Wheezing Last Admin: 06/13/20 08:19 Dose: 2.5 mg Documented by: Budesonide (Pulmicort) 0.5 mg INH RTBID SARAH Last Admin: 06/13/20 08:17 Dose: 0.5 mg Documented by: Bupropion HCl (Wellbutrin Sr) 150 mg PO BID [facility] Last Admin: 06/12/20 21:42 Dose: Not Given Documented by: Clonazepam (Klonopin) 1 mg PO DAILY PRN PRN Reason: Anxiety Cyanocobalamin (Vitamin B-12) 1,000 mcg PO DAILY [facility] Last Admin: 06/12/20 08:30 Dose: 1,000 mcg Documented by: Potassium Chloride/Dextrose/Sod Cl () 1,000 mls @ 100 mls/hr IV .Q10H [facility] Last Admin: 06/13/20 06:59 Dose: 100 mls/hr Documented by: Piperacillin Sod/Tazobactam (Sod 3.375 gm/ Sodium Chloride) 100 mls @ 25 mls/hr IV Q8H [facility] Last Admin: 06/13/20 05:28 Dose: 25 mls/hr Documented by: Levetiracetam (Keppra) 500 mg PO BID [facility] Last Admin: 06/12/20 21:42 Dose: Not Given Documented by: Morphine Sulfate (Morphine (Carpuject)) 2 mg IVP Q4H PRN PRN Reason: Pain 8 to 10 Last Admin: 06/13/20 05:32 Dose: 2 mg Documented by: Multivitamins/Minerals (Theragran M) 1 tab PO DAILYWM [facility] Ondansetron HCl (Zofran Inj) 4 mg IVP Q6HR PRN PRN Reason: Nausea / Vomiting Last Admin: 06/12/20 12:32 Dose: 4 mg Documented by: Pantoprazole Sodium (Protonix) 40 mg IVP QDAC [facility] Last Admin: 06/13/20 06:26 Dose: 40 mg Documented by: Dextroamphetamine/Amphetamine [ Adderall] 30 Mg Tablet 1 each PO TID [facility] Last Admin: 06/13/20 06:26 Dose: 1 each Documented by: Phenol/Menthol (Chloraseptic) 2 sprays MM Q2HR PRN PRN Reason: Throat Pain Prednisone (Deltasone) 40 mg PO DAILYWM [facility] Last Admin: 06/12/20 17:44 Dose: 40 mg Documented by: Prochlorperazine Edisylate (Compazine Inj) 10 mg IVP Q6HR PRN PRN Reason: Nausea / Vomiting Last Admin: 06/12/20 16:00 Dose: 10 mg Documented by: Quetiapine Fumarate (Seroquel) 400 mg PO QPM [facility] Last Admin: 06/12/20 21:37 Dose: 300 mg Documented by: Sodium Chloride (Normal Saline Flush 0.9%) 10 ml IVP PRN PRN PRN Reason: NEEDED PER PROVIDER ORDERS Last Admin: 06/12/20 12:30 Dose: 10 ml Documented by: Sodium Chloride (Normal Saline Flush 0.9%) 10 ml IVP 0100,0900,1700 [facility] Last Admin: 06/13/20 01:39 Dose: Not Given Documented by: Throat Lozenges (Cepacol) 1 lozenge MM Q2HR PRN PRN Reason: Throat pain Last Admin: 06/12/20 08:30 Dose: 1 lozenge Documented by: Acetaminophen 650 mg PO Q6HR PRN 06/11/20 Cyanocobalamin (Vitamin B-12) [Vitamin B-12] 1,000 mcg PO DAILY 06/11/20 Dextroamphetamine/Amphetamine [Adderall 30 mg Tablet] 30 mg PO TID 06/11/20 Fluticasone 110 Mcg [Flovent] 2 puffs INH BID 06/11/20 Glucosam/Chondr-Msm6/Manganese [Glucosamine-Chondroitin Sftgl] 1 cap PO DAILY 06/11/20 Levetiracetam [Keppra] 500 mg PO BID 06/11/20 buPROPion HCL [Bupropion HCl Sr] 150 mg PO BID 06/11/20 clonazePAM [Klonopin] 1 mg PO DAILY PRN 06/11/20 Allergies/Adverse Reactions: Allergies Allergy/AdvReac Type Severity Reaction Status Date / Time doxycycline Allergy Rash Verified 06/11/20 11:20 ketorolac tromethamine * Allergy Unknown Verified 06/11/20 11:20 [From Toradol] Anes History & Medical History - Medical History Cardiovascular: reports: High cholesterol, Hypertension Pulmonary: reports: Asthma, Shortness of breath Gastrointestinal: reports: GERD, Ulcers Neuro: reports: None Musculoskeletal: reports: Chronic back pain, Other Endocrine/Autoimmune: reports: None Blood Disorders: reports: None Skin: reports: None Smoking Status: Former smoker Psychosocial: reports: Substance abuse (denies any use, positve for several on tox screen) History of Cancer?: No - Surgical History Eyes Ears Nose Throat (EENT): Tonsil/Adenoidectomy Gynecologic: section, Tubal ligation Orthopedic: Other Exam General: Alert, Oriented x3, Cooperative Respiratory: Lungs clear, Normal breath sounds, No respiratory distress Cardiovascular: Regular rate Neurological: Normal speech Mental/Cognitive Status: Alert/Oriented X3, Normal for patient Cognitive Status: Within normal limits Plan Anesthesia Type: MAC Consent for Procedure(s) Verified and Reviewed: Yes Code Status: Attempt Resuscitation ASA classification: 2-Mild systemic disease Is this case an emergency?: No
[2020-06-13] MEDS: predniSONE 20 MG TABLET PO SCH (09:56)
[2020-06-13] MEDS: buPROPion SR 150 MG TABLET PO SCH ×2 (09:56→21:58)
[2020-06-13] MEDS: levETIRAcetam 250 MG TABLET PO SCH ×2 (09:56→21:58)
[2020-06-13] MEDS: CYANOCOBALAMIN 500 MCG TABLET PO SCH (09:56)
[2020-06-13] MEDS: MULTIVITAMIN W/MINERALS TABLET PO SCH (09:57)
[2020-06-13] MEDS: ACETAMINOPHEN 325 MG TABLET PO PRN ×2 (09:58→22:12)
[2020-06-13] MEDS: BENZOCAINE/MENTHOL LOZENGE MM PRN ×4 (10:05→22:05)
[2020-06-13] MEDS ORDERED: PEG 3350/NA SULF,BICARB,CL/KCL 4,000 ML BOTTLE PO ONE (11:21)
[2020-06-13] MEDS ORDERED: SOAP SUDS ENEMA 1 EACH RC ONE (11:22)
[2020-06-13] MEDS: SODIUM CHLORIDE FLUSH 0.9% 10 ML SYRINGE IVP PRN ×2 (12:35→14:04)
[2020-06-13] MEDS: ONDANSETRON 4 MG/2 ML VIAL IVP PRN (12:35)
--- NOTE | 2020-06-13 14:46 | PROVIDER PROGRESS NOTE ---
Assessment/Plan - Problem List (1) Partial small bowel obstruction Assessment/Plan: 06/13 Patient still complains abdominal pain, no bowel movement or gas passed. surgeon order PEG one liter and enema but pt pt immediately vomit out PEG fluid. surgeon then take pt to ED, we will followup. Patient took NG tube by self on yesterday, we will consideration to have NG tube for patient today again. CT And x-ray still show small bowel obstruction. Patient take NG tube off by her self. Patient still complains abdominal pain, no gas or stool passed. complain nausea but no vomiting yet. Continue NPO, continue intravenous IV fluids with D5. Pain control. Treating underlying infection colitis and inflammation. Continue consult with general surgeon. Encourage patient ambulation, reduce opiates as possible (2)infectious colitis 06/13 We will continue current medical management with antibiotics and steroids, continue lab monitor CT And x-ray still show small bowel obstruction resultant from Infection and inflammation. Patient still complaint abdominal pain, Nausea. We will treat infection with Zosyn and add prednison for inflammation. (3) History of substance abuse Conclusion/Plan: stable, it seems pt has no withdrawal symptoms now. (4) Anxiety disorder Conclusion/Plan: we will resume her bupropion, Klonopin, and Seroquel. Also have social work see her. (5) Hypokalemia Conclusion/Plan: Supplement IV. Recheck in the morning. (6)hx of asthma Patient has a history of asthma, No acute exacerbation. will resume home Pu lmicort, and albuterol as needed (7)hx of seizure Patient has a history of seizure, resume home Keppra, will check Keppra serum concentration - Current Meds Current Meds: Current Medications Generic Name Dose Route Start Last Admin Trade Name Freq PRN Reason Stop Dose Admin Acetaminophen 650 mg 06/11/20 17:33 06/13/20 09:58 Tylenol PO 650 mg Q6HR PRN Administration PAIN Albuterol 2.5 mg 06/12/20 18:12 06/13/20 08:19 INH 2.5 mg RTQ4H PRN Administration Wheezing Budesonide 0.5 mg 06/12/20 19:00 06/13/20 08:17 Pulmicort INH 0.5 mg RTBID SARAH Administration Bupropion HCl 150 mg 06/11/20 21:00 06/13/20 09:56 Wellbutrin Sr PO 150 mg BID SARAH Administration Cyanocobalamin 1,000 mcg 06/12/20 09:00 06/13/20 09:56 Vitamin B-12 PO 1,000 mcg DAILY SARAH Administration Potassium Chloride/Dextrose/Sod Cl 1,000 mls @ 100 mls/hr 06/11/20 16:00 06/13/20 14:20 IV 0 mls/hr .Q10H SARAH Infusion Piperacillin Sod/Tazobactam 100 mls @ 25 mls/hr 06/12/20 21:00 06/13/20 12:35 Sod 3.375 gm/ Sodium Chloride IV 25 mls/hr Q8H SARAH Administration Levetiracetam 500 mg 06/11/20 21:00 06/13/20 09:56 Keppra PO 500 mg BID SARAH Administration Morphine Sulfate 2 mg 06/11/20 19:33 06/13/20 14:04 Morphine (Carpuject) IVP 2 mg Q4H PRN Administration Pain 8 to 10 Multivitamins/Minerals 1 tab 06/13/20 08:00 06/13/20 09:57 Theragran M PO 1 tab DAILYWM SARAH Administration Ondansetron HCl 4 mg 06/11/20 14:41 06/13/20 12:35 Zofran Inj IVP 4 mg Q6HR PRN Administration Nausea / Vomiting Pantoprazole Sodium 40 mg 06/12/20 07:00 06/13/20 06:26 Protonix IVP 40 mg QDAC SARAH Administration Dextroamphetamine/ 1 each 06/11/20 19:00 06/13/20 14:04 Amphetamine [ PO 1 each Adderall] 30 Mg TID SARAH Administration Tablet Prednisone 40 mg 06/12/20 17:00 06/13/20 09:56 Deltasone PO 40 mg DAILYWM SARAH Administration Prochlorperazine Edisylate 10 mg 06/11/20 14:41 06/12/20 16:00 Compazine Inj IVP 10 mg Q6HR PRN Administration Nausea / Vomiting Quetiapine Fumarate 400 mg 06/11/20 21:00 06/12/20 21:37 Seroquel PO 300 mg QPM SARAH Administration Sodium Chloride 10 ml 06/11/20 14:41 06/13/20 14:04 Normal Saline Flush 0.9% IVP 10 ml PRN PRN Administration NEEDED PER PROVIDER ORDERS Sodium Chloride 10 ml 06/11/20 17:00 06/13/20 09:57 Normal Saline Flush 0.9% IVP Not Given 0100,0900,1700 SARAH Throat Lozenges 1 lozenge 06/11/20 17:07 06/13/20 10:05 Cepacol MM 1 lozenge Q2HR PRN Administration Throat pain - Lab Result Fish Bone Diagrams: 06/13/20 05:37 06/13/20 05:37 - Additional Planning My Orders: My Active Orders 06/12/20 17:00 predniSONE [Deltasone] 40 mg PO DAILYWM 06/12/20 18:12 Albuterol 2.5 mg INH RTQ4H PRN 06/12/20 18:13 Nebulizer/MDI Tx. [RC] .qid 06/12/20 19:00 Budesonide [Pulmicort] 0.5 mg INH RTBID 06/12/20 21:00 Piperacillin/Tazobactam [Zosyn] 3.375 gm Sodium Chloride 0.9% Minibag [Normal Saline 0.9% Minibag] 100 ml IV Q8H 06/13/20 05:37 LEVETIRACETAM (KEPPRA) LEVEL [REFLAB] DAILYLAB 06/13/20 08:00 Multivitamin W/Minerals [Theragran M] 1 tab PO DAILYWM Subjective - Subjective Patient Reports: Abdominal Pain Objective Vital Signs: Vital Signs - 24 hr 06/12/20 06/12/20 06/12/20 15:47 20:59 21:47 Temperature 37.0 C Heart Rate 77 Heart Rate [ 80 77 Brachial] Respiratory 16 16 21 Rate Blood Pressure 125/77 136/82 H [Right Brachial artery] O2 Saturation 98 98 06/13/20 06/13/20 06/13/20 00:00 07:38 08:19 Temperature 37.2 C 36.6 C Heart Rate 78 Heart Rate [ 98 78 Brachial] Respiratory 14 19 16 Rate Blood Pressure 107/59 L 117/73 [Right Brachial artery] O2 Saturation 96 98 Oxygen O2 Source Room air I&O (Last 24 Hrs): Intake and Output Totals x24h 06/11/20 06/12/20 06/13/20 23:59 23:59 23:59 Intake Total 1127.5 2100.000 2373.333 Output Total 475 1350 1000 Balance 652.5 308.727 4090.333 General: Alert, Oriented x3, Mild distress HEENT: Atraumatic Neck: Supple Lymphatic: no adenopathy Neuro: Alert, Non Focal, Oriented Times 3 Cardiovascular: Regular rate, Normal S1, Normal S2 Respiratory: Chest non-tender, No respiratory distress Abdomen: Normal bowel sounds, Soft, No tenderness, Other (Patient has soft abdomen, patient has active bowel sounds in the all 4 quadrants) Extremities: Normal pulses - Results Results: Laboratory Results WBC 4.3 x10^3/uL (4.8-10.8) L 06/13/20 05:37 RBC 4.19 10^6/uL (4.20-5.40) L 06/13/20 05:37 Hgb 11.4 g/dL (12.0-16.0) L 06/13/20 05:37 Hct 35.4 % (37.0-47.0) L 06/13/20 05:37 MCV 84.5 fL (81.0-99.0) 06/13/20 05:37 MCH 27.2 pg (27.0-31.0) 06/13/20 05:37 MCHC 32.2 g/dL (32.0-36.0) 06/13/20 05:37 RDW 15.2 % (12.0-15.0) H 06/13/20 05:37 Plt Count 290 10^3/uL (130-450) 06/13/20 05:37 MPV 9.3 fL (7.9-10.8) 06/13/20 05:37 Neut # (Auto) Not Reportable 06/13/20 05:37 Lymph # (Auto) Not Reportable 06/13/20 05:37 [place] # (Auto) Not Reportable 06/13/20 05:37 Eos # (Auto) Not Reportable 06/13/20 05:37 Baso # (Auto) Not Reportable 06/13/20 05:37 Absolute Nucleated RBC Not Reportable 06/13/20 05:37 Total Counted 100 06/13/20 05:37 Band Neuts % (Manual) 7 % (0-10) 06/13/20 05:37 Abnorm Lymph % (Manual) 0 % 06/13/20 05:37 Nucleated RBC % Not Reportable 06/13/20 05:37 Neutrophils # (Manual) 3.9 10^3/uL (1.5-6.6) 06/13/20 05:37 Lymphocytes # (Manual) 0.3 10^3/uL (1.5-3.5) L 06/13/20 05:37 Monocytes # (Manual) 0.2 10^3/uL (0.0-1.0) 06/13/20 05:37 Eosinophils # (Manual) 0.0 10^3/uL (0-0.7) 06/13/20 05:37 Basophils # (Manual) 0.0 10^3/uL (0-0.1) 06/13/20 05:37 Differential Comment MANUAL DIFFERENTIAL 06/13/20 05:37 Platelet Estimate NORMAL (130-450,000) (NORMAL) 06/13/20 05:37 RBC Morph Micro Appear NORMAL APPEARANCE (NORMAL) 06/13/20 05:37 Sodium 137 mmol/L (135-145) 06/13/20 05:37 Potassium 3.7 mmol/L (3.5-5.0) 06/13/20 05:37 Chloride 109 mmol/L (101-111) 06/13/20 05:37 Carbon Dioxide 20 mmol/L (21-32) L 06/13/20 05:37 Anion Gap 8.0 (6-13) 06/13/20 05:37 BUN 7 mg/dL (6-20) 06/13/20 05:37 Creatinine 0.5 mg/dL (0.4-1.0) 06/13/20 05:37 Estimated GFR (MDRD) 135 (>89) 06/13/20 05:37 Glucose 161 mg/dL (70-100) H 06/13/20 05:37 Calcium 8.5 mg/dL (8.5-10.3) 06/13/20 05:37 Total Bilirubin 0.8 mg/dL (0.2-1.0) 06/11/20 11:58 AST 47 IU/L (10-42) H 06/11/20 11:58 ALT 31 IU/L (10-60) 06/11/20 11:58 Alkaline Phosphatase 43 IU/L (42-121) 06/11/20 11:58 Total Protein 7.7 g/dL (6.7-8.2) 06/11/20 11:58 Albumin 4.8 g/dL (3.2-5.5) 06/11/20 11:58 Globulin 2.9 g/dL (2.1-4.2) 06/11/20 11:58 Albumin/Globulin Ratio 1.7 (1.0-2.2) 06/11/20 11:58 Lipase 32 U/L (22-51) 06/11/20 11:58 Urine Color YELLOW 06/11/20 16:10 Urine Clarity CLEAR (CLEAR) 06/11/20 16:10 Urine pH 5.5 PH (5.0-7.5) 06/11/20 16:10 Ur Specific [place] 1.010 (1.002-1.030) 06/11/20 16:10 Urine Protein NEGATIVE mg/dL (NEGATIVE) 06/11/20 16:10 Urine Glucose (UA) NEGATIVE mg/dL (NEGATIVE) 06/11/20 16:10 Urine Ketones >=80 mg/dL (NEGATIVE) H 06/11/20 16:10 Urine Occult Blood NEGATIVE (NEGATIVE) 06/11/20 16:10 Urine Nitrite NEGATIVE (NEGATIVE) 06/11/20 16:10 Urine Bilirubin NEGATIVE (NEGATIVE) 06/11/20 16:10 Urine Urobilinogen 0.2 (NORMAL) E.U./dL (NORMAL) 06/11/20 16:10 Ur Leukocyte Esterase NEGATIVE (NEGATIVE) 06/11/20 16:10 Ur Microscopic Review NOT INDICATED 06/11/20 16:10 Urine Culture Comments NOT INDICATED 06/11/20 16:10 Urine HCG, Qual NEGATIVE 06/11/20 16:10 Urine Opiates Screen POSITIVE (NEGATIVE) H 06/11/20 16:10 Ur Oxycodone Screen NEGATIVE (NEGATIVE) 06/11/20 16:10 Urine Methadone Screen NEGATIVE (NEGATIVE) 06/11/20 16:10 Ur Propoxyphene Screen NEGATIVE (NEGATIVE) 06/11/20 16:10 Ur Barbiturates Screen NEGATIVE (NEGATIVE) 06/11/20 16:10 Ur Tricyclics Screen POSITIVE (NEGATIVE) H 06/11/20 16:10 Ur Phencyclidine Scrn NEGATIVE (NEGATIVE) 06/11/20 16:10 Ur Amphetamine Screen POSITIVE (NEGATIVE) H 06/11/20 16:10 U Methamphetamines Scrn NEGATIVE (NEGATIVE) 06/11/20 16:10 U Benzodiazepines Scrn POSITIVE (NEGATIVE) H 06/11/20 16:10 Urine Cocaine Screen NEGATIVE (NEGATIVE) 06/11/20 16:10 U Cannabinoids Screen POSITIVE (NEGATIVE) H 06/11/20 16:10 ABX Reporting Has patient been on IV antibiotics over the past 48 hours?: Yes Current Medications - Current Medications Current Medications: Active Medications Acetaminophen (Tylenol) 650 mg PO Q6HR PRN PRN Reason: PAIN Last Admin: 06/13/20 09:58 Dose: 650 mg Documented by: Albuterol () 2.5 mg INH RTQ4H PRN PRN Reason: Wheezing Last Admin: 06/13/20 08:19 Dose: 2.5 mg Documented by: Budesonide (Pulmicort) 0.5 mg INH RTBID SARAH Last Admin: 06/13/20 08:17 Dose: 0.5 mg Documented by: Bupropion HCl (Wellbutrin Sr) 150 mg PO BID [facility] Last Admin: 06/13/20 09:56 Dose: 150 mg Documented by: Clonazepam (Klonopin) 1 mg PO DAILY PRN PRN Reason: Anxiety Cyanocobalamin (Vitamin B-12) 1,000 mcg PO DAILY [facility] Last Admin: 06/13/20 09:56 Dose: 1,000 mcg Documented by: Potassium Chloride/Dextrose/Sod Cl () 1,000 mls @ 100 mls/hr IV .Q10H [facility] Last Infusion: 06/13/20 14:20 Dose: 0 mls/hr Documented by: Piperacillin Sod/Tazobactam (Sod 3.375 gm/ Sodium Chloride) 100 mls @ 25 mls/hr IV Q8H [facility] Last Admin: 06/13/20 12:35 Dose: 25 mls/hr Documented by: Levetiracetam (Keppra) 500 mg PO BID [facility] Last Admin: 06/13/20 09:56 Dose: 500 mg Documented by: Morphine Sulfate (Morphine (Carpuject)) 2 mg IVP Q4H PRN PRN Reason: Pain 8 to 10 Last Admin: 06/13/20 14:04 Dose: 2 mg Documented by: Multivitamins/Minerals (Theragran M) 1 tab PO DAILYWM [facility] Last Admin: 06/13/20 09:57 Dose: 1 tab Documented by: Ondansetron HCl (Zofran Inj) 4 mg IVP Q6HR PRN PRN Reason: Nausea / Vomiting Last Admin: 06/13/20 12:35 Dose: 4 mg Documented by: Pantoprazole Sodium (Protonix) 40 mg IVP QDAC [facility] Last Admin: 06/13/20 06:26 Dose: 40 mg Documented by: Dextroamphetamine/Amphetamine [ Adderall] 30 Mg Tablet 1 each PO TID [facility] Last Admin: 06/13/20 14:04 Dose: 1 each Documented by: Phenol/Menthol (Chloraseptic) 2 sprays MM Q2HR PRN PRN Reason: Throat Pain Prednisone (Deltasone) 40 mg PO DAILYWM [facility] Last Admin: 06/13/20 09:56 Dose: 40 mg Documented by: Prochlorperazine Edisylate (Compazine Inj) 10 mg IVP Q6HR PRN PRN Reason: Nausea / Vomiting Last Admin: 06/12/20 16:00 Dose: 10 mg Documented by: Quetiapine Fumarate (Seroquel) 400 mg PO QPM [facility] Last Admin: 06/12/20 21:37 Dose: 300 mg Documented by: Sodium Chloride (Normal Saline Flush 0.9%) 10 ml IVP PRN PRN PRN Reason: NEEDED PER PROVIDER ORDERS Last Admin: 06/13/20 14:04 Dose: 10 ml Documented by: Sodium Chloride (Normal Saline Flush 0.9%) 10 ml IVP 0100,0900,1700 [facility] Last Admin: 06/13/20 09:57 Dose: Not Given Documented by: Throat Lozenges (Cepacol) 1 lozenge MM Q2HR PRN PRN Reason: Throat pain Last Admin: 06/13/20 10:05 Dose: 1 lozenge Documented by: Acetaminophen 650 mg PO Q6HR PRN 06/11/20 Cyanocobalamin (Vitamin B-12) [Vitamin B-12] 1,000 mcg PO DAILY 06/11/20 Dextroamphetamine/Amphetamine [Adderall 30 mg Tablet] 30 mg PO TID 06/11/20 Fluticasone 110 Mcg [Flovent] 2 puffs INH BID 06/11/20 Glucosam/Chondr-Msm6/Manganese [Glucosamine-Chondroitin Sftgl] 1 cap PO DAILY 06/11/20 Levetiracetam [Keppra] 500 mg PO BID 06/11/20 buPROPion HCL [Bupropion HCl Sr] 150 mg PO BID 06/11/20 clonazePAM [Klonopin] 1 mg PO DAILY PRN 06/11/20
[2020-06-13] MEDS ORDERED: PEG 3350/NA SULF,BICARB,CL/KCL 4,000 ML BOTTLE NG ONE (16:30)
--- NOTE | 2020-06-13 16:44 | XRAY Report ---
PROCEDURE: Chest for Line Placement INDICATIONS: If NG is at the position TECHNIQUE: One view of the chest was acquired. COMPARISON: Prior chest plain film one day ago. FINDINGS: Surgical changes and devices: An esophagogastric tube extends into the gastric body and the side-port appears present at the esophagogastric junction.. Lungs and pleura: No pleural effusions or pneumothorax. Lungs are clear. Mediastinum: Mediastinal contours appear normal. Heart size is normal. Bones and chest wall: No suspicious bony lesions. Overlying soft tissues appear unremarkable. IMPRESSION: Esophagogastric tube positioning normal, and the tube could be advanced if tolerated approximately 7- 10 cm more deeply within the stomach. Reviewed by: Toni Gallagher MD on 06/13/2020 4:42 PM PST Approved by: Toni Gallagher MD on 06/13/2020 4:42 PM PST Station ID: [id number]
--- NOTE | 2020-06-13 17:32 | ANESTHESIA POST OP EVALUATION ---
Anesthesia Post Eval - Post Anesthesia Eval Vitals: Last Vital Signs Temp 36.5 C 06/13/20 16:50 Pulse 78 06/13/20 17:22 Resp 24 06/13/20 16:50 BP 110/67 06/13/20 16:50 Pulse Ox 99 06/13/20 16:50 CV Function Including HR & BP: positive: Stable Pain Control: positive: Satisfactory Nausea & Vomiting: positive: Negative Mental Status: positive: Baseline Respiratory Status: Airway Patent Hydration Status: Satisfactory Anesthesia Complications: positive: None
--- NOTE | 2020-06-13 19:55 | PROVIDER PROGRESS NOTE ---
Progress Note Attempted prep in anticipation of colonoscopy for evaluation of ileitis and bowel obstruction, however patient experience nausea and emesis as a result. Proceeded with lower endoscopy under MAC after having placed NGT to avoid aspiration in the setting of obstruction, unknown etiology. Findings as follows: 1. Normal rectum, colon, with extensive tortuousity and angularity, requiring multiple postural changes and intermittent stiffening wire placement. 2. Extensive retained stool throughout with hard, inspissated stool in the right colon and the level of the ileocecal valve. 3. Extensive irrigation, revealed hard stool, normal cecum and ileocecal valve with no obvious pathology. 4. With great difficulty, the terminal ileum was intubated and the TI was accessed without complication and normal - no obvious ileitis, luminal narrowing or other concerning pathology. Biopsies taken. 5. Ultimately, we were able to irrigate out the majority of the colon and other than retained stool, and redundant/tortuous colon, this was essentially normal lower endoscopy. 6. Stool studies obtained. Recommend slow bowel prep per nasogastric tube at 50cc/hr over the next 24hr. Discontinue abx/steroids at this time.
[2020-06-13] MEDS: QUEtiapine 100 MG TABLET PO SCH (22:04)
[2020-06-14] MEDS: SODIUM CHLORIDE FLUSH 0.9% 10 ML SYRINGE IVP SCH ×2 (00:14→08:46)
[2020-06-14] MEDS: BENZOCAINE/MENTHOL LOZENGE MM PRN ×2 (03:20→08:49)
[2020-06-14] MEDS: D5NS W/20 MEQ KCL 1,000 ML IV SCH (03:43)
[2020-06-14 05:57] LABS: BASOPHILS % (AUTO) 0.3 %; EOSINOPHILS # (AUTO) 0.1 10^3/uL (0.0-0.7); EOSINOPHILS % (AUTO) 0.9 %; HGB - HEMOGLOBIN 10.1 g/dL (12.0-16.0); LYMPHOCYTES # (AUTO) 1.8 10^3/uL (1.5-3.5); LYMPHOCYTES % (AUTO) 27.7 %; MEAN CORPUSCULAR HGB CONC 31.9 g/dL (32.0-36.0); MEAN CORPUSCULAR VOLUME 84.8 fL (81.0-99.0); MONOCYTES # (AUTO) 0.7 10^3/uL (0.0-1.0); MONOCYTES % (AUTO) 11.1 %; NEUTROPHILS # (AUTO) 3.8 10^3/uL (1.5-6.6); NEUTROPHILS % (AUTO) 59.7 %; PLT - PLATELET COUNT 265 10^3/uL (130-450); RED BLOOD COUNT 3.74 10^6/uL (4.20-5.40); RED CELL DISTRIBUTION WIDTH 15.5 % (12.0-15.0); WHITE BLOOD COUNT 6.4 x10^3/uL (4.8-10.8)
[2020-06-14 06:06] LABS: CALCIUM 8.1 mg/dL (8.5-10.3); CREATININE 0.5 mg/dL (0.4-1.0)
[2020-06-14] MEDS ORDERED: POTASSIUM CHLORIDE 20 MEQ TABLET PO ONE (07:31)
[2020-06-14] MEDS: BUDESONIDE 0.5 MG/2 ML NEB INH SCH (08:28)
[2020-06-14] MEDS: PANTOPRAZOLE 40 MG VIAL IVP SCH (08:46)
[2020-06-14] MEDS: levETIRAcetam 250 MG TABLET PO SCH (08:47)
[2020-06-14] MEDS: MULTIVITAMIN W/MINERALS TABLET PO SCH (08:47)
[2020-06-14] MEDS: ACETAMINOPHEN 325 MG TABLET PO PRN ×2 (08:47→15:12)
[2020-06-14] MEDS: buPROPion SR 150 MG TABLET PO SCH (08:47)
[2020-06-14] MEDS: CYANOCOBALAMIN 500 MCG TABLET PO SCH (08:47)
[2020-06-14] MEDS: Dextroamphetamine/Amphetamine [Adderall] 30 MG Tablet PO SCH ×3 (08:49→16:15)
[2020-06-14] MEDS: SODIUM CHLORIDE FLUSH 0.9% 10 ML SYRINGE IVP PRN (08:56)
[2020-06-14 12:10] LABS: C. PNEUMONIAE- RESP PCR PANEL NOT DETECTED
[2020-06-14] MEDS ORDERED: SACCHAROMYCES BOULARDII 250 MG CAPSULE PO SCH (13:12)
[2020-06-14] MEDS ORDERED: LOPERAMIDE 2 MG CAPSULE PO ONE (13:12)
[2020-06-14] MEDS ORDERED: LOPERAMIDE 2 MG CAPSULE PO PRN (13:12)
[2020-06-14] MEDS: ALBUTEROL NEB 2.5 MG/3 ML INH PRN (15:00)
--- NOTE | 2020-06-14 15:53 | Discharge Plan ---
Discharge Plan Problem Reviewed?: Yes Disposition: Home, Self Care Condition: Stable Prescriptions: Loperamide [Imodium] 2 mg PO QID PRN #10 capsule PRN Reason: Diarrhea Diet: Regular Activity Restrictions: Activity as Tolerated Shower Restrictions: No (fall precaution) Instruction Topics: Loperamide tablets or capsules, Bupropion tablets Depression/Mood Disorders, Epilepsy Dx Health Concerns: partial small bowel obstruction, constipation Plan of Treatment: you had very hard stool in your colon, colonoscopy help you to remove your stool, then your partial bowel obstruction is resolved. Then you develop mild diarrhea, Imodium is prescribed for your short term usage with PRN. Your diarrhea is controlled now. Your home meds Bupropion is contraindication to your Keppra seizure, now it is hold, advise you discussed with PCP for continuing management. Care Goals: stabilization and improvement of your medical condition Assessment: discuss the car plan with you, you understood Additional Instructions or Follow Up instructions: You may followup with your PCP in one week. Should your symptoms return or worsen, you may present ER or call 911 for help. No Smoking: If you smoke, Please STOP! Call for help. Follow-up with: TAMMI FORREST MD [Primary Care Provider] -
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
[2020-06-14 16:21] VITALS: BP 134/78
[2020-06-14] MEDS ORDERED: GLYCOPYRROLATE 1 MG/5 ML VIAL IVP ONE (17:07)
[2020-06-14] MEDS ORDERED: MIDAZOLAM 2 MG/2 ML VIAL IVP ONE (17:07)
[2020-06-14] MEDS ORDERED: KETAMINE 500 MG/10 ML VIAL IVP ONE (17:07)
[2020-06-14] MEDS ORDERED: PROPOFOL 200 MG/20 ML VIAL IVP ONE (17:07)
== END 2020-06-14 17:08 | disposition home or self-care (01) | DRG 389 ==
LOC: EDUNIT# → ED 11:12 → MS2 14:41
PROVIDERS: ADMIT Internal Medicine; ATTEND Nurse Practitioner Gerontology
PROC: 0DBE8ZX Excision of Large Intestine, Via Natural or Artificial Opening Endoscopic, Diagnostic (ICD-10-PCS; 2020-06-13)
PROC: 0DBB8ZX Excision of Ileum, Via Natural or Artificial Opening Endoscopic, Diagnostic (ICD-10-PCS; principal; 2020-06-13 10:30)
DX: K56.41 Fecal impaction (principal); K56.690 Other partial intestinal obstruction; F41.0 Panic disorder [episodic paroxysmal anxiety]; F15.10 Other stimulant abuse, uncomplicated; E87.6 Hypokalemia; K63.89 Other specified diseases of intestine; J45.909 Unspecified asthma, uncomplicated; I10 Essential (primary) hypertension; K21.9 Gastro-esophageal reflux disease without esophagitis; R19.7 Diarrhea, unspecified; R56.9 Unspecified convulsions; R82.5 Elevated urine levels of drugs, medicaments and biological substances; E78.00 Pure hypercholesterolemia, unspecified; F17.210 Nicotine dependence, cigarettes, uncomplicated; F90.9 Attention-deficit hyperactivity disorder, unspecified type; F43.10 Post-traumatic stress disorder, unspecified; G89.29 Other chronic pain; M54.9 Dorsalgia, unspecified; M19.90 Unspecified osteoarthritis, unspecified site; Z20.828 Contact with and (suspected) exposure to other viral communicable diseases; Z79.51 Long term (current) use of inhaled steroids; Z86.14 Personal history of Methicillin resistant Staphylococcus aureus infection; Z87.11 Personal history of peptic ulcer disease
CPT/HCPCS: 0202U; 36415; 71045; 74019; 74177; 80048; 80053; 80177; 80306; 81003; 81025; 81599; 83630; 83690; 85025; 87015; 87177; 87209; 87272; 87329; 87493; 87635; 94640; 96361; 96374; 96375; 99284; 99285; A9270; J2060; J7512; J7626; Q9967; 81001; 87045; 87046; 87086

== ENCOUNTER 2020-08-24 10:04 | Outpatient (CLI) | payer MEDICAID ==
[2020-08-24 11:56] LABS: BASOPHILS # (AUTO) 0.1 10^3/uL (0.0-0.1); BASOPHILS % (AUTO) 0.7 %; EOSINOPHILS # (AUTO) 0.1 10^3/uL (0.0-0.7); EOSINOPHILS % (AUTO) 1.7 %; HGB - HEMOGLOBIN 11.9 g/dL (12.0-16.0); LYMPHOCYTES # (AUTO) 1.5 10^3/uL (1.5-3.5); LYMPHOCYTES % (AUTO) 21.1 %; MEAN CORPUSCULAR HEMOGLOBIN 26.7 pg (27.0-31.0); MEAN CORPUSCULAR HGB CONC 31.3 g/dL (32.0-36.0); MEAN CORPUSCULAR VOLUME 85.2 fL (81.0-99.0); MEAN PLATELET VOLUME 10.5 fL (7.9-10.8); MONOCYTES # (AUTO) 0.4 10^3/uL (0.0-1.0); MONOCYTES % (AUTO) 5.6 %; NEUTROPHILS # (AUTO) 4.9 10^3/uL (1.5-6.6); NEUTROPHILS % (AUTO) 70.5 %; PLT - PLATELET COUNT 318 10^3/uL (130-450); RED BLOOD COUNT 4.46 10^6/uL (4.20-5.40); RED CELL DISTRIBUTION WIDTH 15.2 % (12.0-15.0)
[2020-08-24 12:31] LABS: ALBUMIN 4.6 g/dL (3.2-5.5); ALBUMIN/GLOBULIN RATIO 1.6 (1.0-2.2); ALKALINE PHOSPHATASE 39 IU/L (42-121); ALT ALANINE AMINOTRANSFERASE 16 IU/L (10-60); AST ASPARTATE AMINOTRANSFERASE 22 IU/L (10-42); BILIRUBIN,TOTAL 0.2 mg/dL (0.2-1.0); BUN - BLOOD UREA NITROGEN 17 mg/dL (6-20); CALCIUM 9.6 mg/dL (8.5-10.3); CARBON DIOXIDE - CO2 24 mmol/L (21-32); CHLORIDE 104 mmol/L (101-111); CHOLESTEROL 170 mg/dL; CREATININE 0.6 mg/dL (0.4-1.0); GLUCOSE 95 mg/dL (70-100); HDL CHOLESTEROL 57 mg/dL; LDL CHOLESTEROL,CALCULATED 91 mg/dL; LDL/HDL RATIO 1.6 (<4.4); TOTAL PROTEIN 7.5 g/dL (6.7-8.2); VLDL CHOLESTEROL 22 mg/dL
[2020-08-24 13:43] LABS: HEMOGLOBIN A1c% 5.3 % (4.27-6.07)
[2020-08-24 14:12] LABS: FREE T4 (FREE THYROXINE) 0.8 ng/dL (0.58-1.64)
== END 2020-08-24 10:05 | disposition home or self-care (01) ==
LOC: LAB.N 10:04
PROVIDERS: ATTEND Internal Medicine
DX: R41.3 Other amnesia (principal); F32.9 Major depressive disorder, single episode, unspecified; F41.9 Anxiety disorder, unspecified
CPT/HCPCS: 36415; 80053; 80061; 82607; 83036; 83721; 84439; 84443; 85025

== ENCOUNTER 2020-09-06 14:32 | Outpatient (CLI) | payer MEDICAID | END 2020-09-06 14:33 | disposition EMS.NT | LOC: EMS 14:32 | DX: S09.90XA Unspecified injury of head, initial encounter (principal); W00.0XXA Fall on same level due to ice and snow, initial encounter; Y93.01 Activity, walking, marching and hiking; Y92.414 Local residential or business street as the place of occurrence of the external cause ==

== ENCOUNTER 2020-09-07 01:09 | Outpatient (CLI) | payer MEDICAID | END 2020-09-07 01:10 | disposition EMS.NT | LOC: EMS 01:09 | DX: Z03.89 Encounter for observation for other suspected diseases and conditions ruled out (principal) ==

== ENCOUNTER 2020-10-31 10:57 | Outpatient (CLI) | payer MEDICAID | END 2020-10-31 10:58 | disposition EMS.NT | LOC: EMS 10:57 | DX: S61.412A Laceration without foreign body of left hand, initial encounter (principal); W26.8XXA Contact with other sharp object(s), not elsewhere classified, initial encounter; Y93.89 Activity, other specified ==

== ENCOUNTER 2020-11-13 08:17 | Outpatient (CLI) | payer MEDICAID | END 2020-11-13 08:18 | disposition critical access hospital (66) | LOC: EMS 08:17 | DX: R53.81 Other malaise (principal); R00.0 Tachycardia, unspecified; M54.2 Cervicalgia; M25.512 Pain in left shoulder | CPT/HCPCS: A0425; A0429 ==

== ENCOUNTER 2020-11-13 08:39 | Emergency (ER) | payer MEDICAID ==
[2020-11-13] MEDS ORDERED: LORazepam 2 MG/ML VIAL IVP STA (09:07)
[2020-11-13] MEDS ORDERED: ACETAMINOPHEN 325 MG TABLET PO STA (09:07)
--- NOTE | 2020-11-13 09:16 | ED Physician Documentation ---
PD HPI CHEST PAIN - Stated complaint Stated Complaint: HEAD PX - Chief complaint Chief Complaint: General - History obtained from History obtained from: Patient, EMS - History of Present Illness Timing - onset: How many days ago (few days of general pains/myalgias worsening, feeling anxiety, and feeling depressed/sad. Denies suicidal ideation. Denies drug use. States did miss doses of some meds the past few days and had not had this AM meds as yet. No alcohol. Has been living in the [facility] in evenings.) Timing - onset during: Light activity Timing - details: Gradual onset, Still present, Waxing and waning (reportedly she was in parking area outside of [facility], to be seen today, but bystanders called EMS though.She told them she had headache, diffuse muscle aches, weakness. She believes she struck her head with a fall a few days ago.) Quality: Aching Location: Substernal, Right chest Radiation: Back. No: Neck, Abdominal Associated symptoms: Nausea, Feeling faint / dizzy, General Weakness. No: Shortness of air, Vomiting, Palpitations Similar symptoms before: Diagnosis (she has had muscle pains in the past.) Review of Systems Constitutional: reports: Myalgias, Fatigue. denies: Fever, Chills Nose: denies: Rhinorrhea / runny nose, Congestion Throat: denies: Sore throat Cardiac: reports: Chest pain / pressure. denies: Palpitations, Pedal edema, Calf pain Respiratory: reports: Cough. denies: Dyspnea, Wheezing GI: reports: Nausea. denies: Abdominal Pain, Vomiting, Diarrhea Musculoskeletal: reports: Extremity swelling (some tenderness anterior shins both sides. No noted redness, rash nor sores. No calf tenderness.) Neurologic: reports: Generalized weakness, Confused, Headache. denies: Focal weakness, Numbness, LOC Psychiatric: reports: Depressed, Anxiety, Insomnia. 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 : None HEENT: None Psych: Anxiety, Panic attacks, ADD/ADHD, Post traumatic stress disorder Musculoskeletal: Chronic back pain, Other Derm: None - Past Surgical History Past Surgical History: Yes Ortho: Other /LEGAL BILLING CLERK: section, Tubal ligation HEENT: Tonsil/Adenoidectomy - Present Medications Home Medications: Ambulatory Orders Medication Instructions Recorded Confirmed Albuterol Sulf [Ventolin Hfa 1 - 2 puffs INH Q4HR PRN #1 inhaler 08/31/17 11/13/20 Inhaler] Quetiapine Fumarate [Seroquel] 400 mg PO QPM #7 tablet 04/09/19 11/13/20 Acetaminophen 650 mg PO Q6HR PRN 06/11/20 11/13/20 Cyanocobalamin (Vitamin B-12) 1,000 mcg PO DAILY 06/11/20 11/13/20 [Vitamin B-12] Dextroamphetamine/Amphetamine 30 mg PO TID 06/11/20 11/13/20 [Adderall 30 mg Tablet] Fluticasone 110 Mcg [Flovent] 2 puffs INH BID 06/11/20 11/13/20 Levetiracetam [Keppra] 500 mg PO BID 06/11/20 11/13/20 clonazePAM [Klonopin] 0.5 mg PO BID 06/11/20 11/13/20 buPROPion HCL [Bupropion HCl Sr] 150 mg PO BID 11/13/20 11/13/20 - Allergies Allergies/Adverse Reactions: Allergies Allergy/AdvReac Type Severity Reaction Status Date / Time doxycycline Allergy Rash Verified 11/13/20 08:44 fexofenadine [From Nohemi] Allergy Unknown Verified 11/13/20 08:44 ketorolac tromethamine * Allergy Unknown Verified 11/13/20 08:44 [From Toradol] tramadol Allergy Unknown Verified 11/13/20 08:44 - Social History Does the pt smoke?: No Smoking Status: Current some day smoker Does the pt drink ETOH?: No Does the pt have substance abuse?: Yes Substance Use and Type: Marijuana - Immunizations Immunizations are current?: Yes Immunizations: TDAP >10years/unknown - POLST Patient has POLST: No POLST Status: Full Code (POTwyla is her mom, Mcihelle Roe, .) PD ED PE NORMAL - Vitals Vital signs reviewed: Yes - General General: No acute distress, Well developed/nourished, Other - HEENT HEENT: Atraumatic - Neck Neck: Supple, no meningeal sign, No bony TTP - Cardiac Cardiac: RRR, No murmur - Respiratory Respiratory: Clear bilaterally, Other (no chestwall tenderness. ) - Abdomen Abdomen: Normal bowel sounds, Soft, Non distended, No organomegaly - Female Female : Deferred - Rectal Rectal: Deferred - Back Back: No CVA TTP - Derm Derm: Normal color, Warm and dry - Extremities Extremities: No tenderness to palpate, Normal ROM s pain - Neuro Neuro: Alert and oriented X 3, No motor deficit, Normal speech Results - Vitals Vitals: Vital Signs - 24 hr 11/13/20 11/13/20 11/13/20 08:44 09:05 11:40 Temperature 36.5 C Heart Rate 73 70 90 Respiratory 14 20 20 Rate Blood Pressure 129/91 H 125/77 147/80 H O2 Saturation 100 100 99 11/13/20 13:46 Temperature Heart Rate 77 Respiratory 19 Rate Blood Pressure 111/68 O2 Saturation 100 Oxygen O2 Source Room air - Labs Labs: Laboratory Tests 11/13/20 11/13/20 11/13/20 09:20 09:20 09:20 WBC 7.1 RBC 4.68 Hgb 12.4 Hct 38.8 MCV 82.9 MCH 26.5 L MCHC 32.0 RDW 15.7 H Plt Count 365 MPV 8.6 Neut # (Auto) 4.7 Lymph # (Auto) 1.8 [place] # (Auto) 0.5 Eos # (Auto) 0.1 Baso # (Auto) 0.1 Absolute Nucleated RBC 0.00 Nucleated RBC % 0.0 Sodium 142 Potassium 3.6 Chloride 106 Carbon Dioxide 25 Anion Gap 11.0 BUN 10 Creatinine 0.7 Estimated GFR (MDRD) 91 Glucose 87 Calcium 9.6 Total Bilirubin 1.2 H AST 36 ALT 28 Alkaline Phosphatase 47 Troponin I High Sens 4.2 B-Natriuretic Peptide Total Protein 7.9 Albumin 4.8 Globulin 3.1 Albumin/Globulin Ratio 1.5 Lipase 30 TSH Urine Color Urine Clarity Urine pH Ur Specific [place] Urine Protein Urine Glucose (UA) Urine Ketones Urine Occult Blood Urine Nitrite Urine Bilirubin Urine Urobilinogen Ur Leukocyte Esterase Urine RBC Urine WBC Ur Squamous Epith Cells Urine Bacteria Urine Mucus Ur Microscopic Review Urine Culture Comments Salicylates < 6.0 Urine Opiates Screen Ur Oxycodone Screen Urine Methadone Screen Ur Propoxyphene Screen Acetaminophen < 10 L Ur Barbiturates Screen Ur Tricyclics Screen Ur Phencyclidine Scrn Ur Amphetamine Screen U Methamphetamines Scrn U Benzodiazepines Scrn Urine Cocaine Screen U Cannabinoids Screen Ethyl Alcohol < 5.0 11/13/20 11/13/20 11/13/20 09:20 09:20 11:30 WBC RBC Hgb Hct MCV MCH MCHC RDW Plt Count MPV Neut # (Auto) Lymph # (Auto) [place] # (Auto) Eos # (Auto) Baso # (Auto) Absolute Nucleated RBC Nucleated RBC % Sodium Potassium Chloride Carbon Dioxide Anion Gap BUN Creatinine Estimated GFR (MDRD) Glucose Calcium Total Bilirubin AST ALT Alkaline Phosphatase Troponin I High Sens B-Natriuretic Peptide 24 Total Protein Albumin Globulin Albumin/Globulin Ratio Lipase TSH 0.39 Urine Color YELLOW Urine Clarity CLEAR Urine pH 5.5 Ur Specific [place] >=1.030 H Urine Protein NEGATIVE Urine Glucose (UA) NEGATIVE Urine Ketones >=80 H Urine Occult Blood SMALL H Urine Nitrite NEGATIVE Urine Bilirubin NEGATIVE Urine Urobilinogen 0.2 (NORMAL) Ur Leukocyte Esterase NEGATIVE Urine RBC 0-5 Urine WBC 0-3 Ur Squamous Epith Cells FEW Squamous Urine Bacteria None Seen Urine Mucus Few Strands Ur Microscopic Review INDICATED Urine Culture Comments NOT INDICATED Salicylates Urine Opiates Screen NEGATIVE Ur Oxycodone Screen NEGATIVE Urine Methadone Screen NEGATIVE Ur Propoxyphene Screen NEGATIVE Acetaminophen Ur Barbiturates Screen NEGATIVE Ur Tricyclics Screen NEGATIVE Ur Phencyclidine Scrn NEGATIVE Ur Amphetamine Screen POSITIVE H U Methamphetamines Scrn NEGATIVE U Benzodiazepines Scrn POSITIVE H Urine Cocaine Screen NEGATIVE U Cannabinoids Screen POSITIVE H Ethyl Alcohol - Rads (name of study) head CT Radiology: Prelim report reviewed (no acute process), See rad report chest xray Radiology: Prelim report reviewed (no infiltrates nor acute process. ), See rad report PD MEDICAL DECISION MAKING - ED course Complexity details: re-evaluated patient (she states she was getting a headache and some visual blurring comparable to prior to seizures in the past. Worried about not having outpt meds yet. So gave dose of her usual meds.), considered differential (gave IV fluids as she felt dehydrated. Also pain meds. ), d/w patient ED course: She is subsequently ambulatory and following direction after time and sleep. [facility] and catch ride to [place]. Prolonged ER stay due to time for sleep, rest, and meds. SW talked with her and did not feel was needing involuntary placement. Patient offered to look at Respite centers or Crisis bed. Patient declined. She did ask if she could be admitted to our hospital but I did not feel she had admission criteria. She would prefer getting bus [facility] to the [facility]. Departure - Departure Disposition: 01 Home, Self Care Clinical Impression: Muscle pain, Anxiety Head contusion Qualifiers: Encounter type: initial encounter Contusion of head detail: scalp Qualified Code(s): S00.03XA - Contusion of scalp, initial encounter Condition: Stable Record reviewed to determine appropriate education?: Yes Comments: Stay well-hydrated. Continue usual medications. Use Tylenol 500 mg 4 times a day regularly for pains and aches. Stay well-hydrated. Follow-up with your primary care if not improved well over the next several days. Discharge Date/Time: 11/13/20 16:46
--- OUTSIDE RECORDS SUMMARY | 2020-11-13 09:21 | EXTERNAL MEDICAL SUMMARY RPT | Continuity of Care Document ---
:1975 Demographics Phone Unavailable Preferred Language Unknown Marital Status Unknown Confucianism Affiliation Unknown Race Unknown Ethnic Group Unknown Author Organization [facility] Address [address] [id number] Phone Social History date description facility [id number]
[2020-11-13 09:30] LABS: BASOPHILS # (AUTO) 0.1 10^3/uL (0.0-0.1); BASOPHILS % (AUTO) 0.7 %; EOSINOPHILS # (AUTO) 0.1 10^3/uL (0.0-0.7); EOSINOPHILS % (AUTO) 0.7 %; HCT - HEMATOCRIT 38.8 % (37.0-47.0); HGB - HEMOGLOBIN 12.4 g/dL (12.0-16.0); LYMPHOCYTES # (AUTO) 1.8 10^3/uL (1.5-3.5); LYMPHOCYTES % (AUTO) 25.1 %; MEAN CORPUSCULAR HEMOGLOBIN 26.5 pg (27.0-31.0); MEAN CORPUSCULAR VOLUME 82.9 fL (81.0-99.0); MEAN PLATELET VOLUME 8.6 fL (7.9-10.8); MONOCYTES # (AUTO) 0.5 10^3/uL (0.0-1.0); MONOCYTES % (AUTO) 7.3 %; NEUTROPHILS # (AUTO) 4.7 10^3/uL (1.5-6.6); NEUTROPHILS % (AUTO) 65.9 %; PLT - PLATELET COUNT 365 10^3/uL (130-450); RED BLOOD COUNT 4.68 10^6/uL (4.20-5.40); RED CELL DISTRIBUTION WIDTH 15.7 % (12.0-15.0); WHITE BLOOD COUNT 7.1 x10^3/uL (4.8-10.8)
--- NOTE | 2020-11-13 09:34 | XRAY Report ---
PROCEDURE: Chest 1 View X-Ray INDICATIONS: Chest Pain TECHNIQUE: One view of the chest was acquired. COMPARISON: Chest x-ray 06/13/2020 FINDINGS: Surgical changes and devices: None. Lungs and pleura: No pleural effusions or pneumothorax. Lungs are clear. Mediastinum: Mediastinal contours appear normal. Heart size is normal. Bones and chest wall: No suspicious bony lesions. Overlying soft tissues appear unremarkable. IMPRESSION: No acute pulmonary process. Reviewed by: Muriel Ashraf MD on 11/13/2020 8:32 AM ISABEL Approved by: Muriel Ashraf MD on 11/13/2020 8:32 AM ISAB[facility] Station ID: [id number]
--- NOTE | 2020-11-13 09:48 | CT Report ---
PROCEDURE: HEAD WO INDICATIONS: headache and believes she fell/struck head TECHNIQUE: Noncontrast 4.5 mm thick angled axial sections acquired from the foramen magnum to the vertex. For r adiation dose reduction, the following was used: automated exposure control, adjustment of mA and/or kV according to patient size. COMPARISON: CT head 04/09/2019 FINDINGS: Image quality: Excellent. CSF spaces: Basal cisterns are patent. No extra-axial fluid collections. Ventricles are normal in size and shape. Brain: No midline shift. No intracranial masses or hemorrhage. Danielson-white matter interface is norm al. Skull and face: Calvarium and visualized facial bones are intact, without suspicious lesions. Sinuses: Visualized sinuses and mastoids are clear. IMPRESSION: 1. No acute intracranial process. Reviewed by: Muriel Ashraf MD on 11/13/2020 8:47 AM ISABEL Approved by: Muriel Ashraf MD on 11/13/2020 8:47 AM ISABEL Station ID: [id number]
[2020-11-13 09:51] LABS: ACETAMINOPHEN < 10 ug/mL (10-30); ALBUMIN 4.8 g/dL (3.2-5.5); ALBUMIN/GLOBULIN RATIO 1.5 (1.0-2.2); ALKALINE PHOSPHATASE 47 IU/L (42-121); ALT ALANINE AMINOTRANSFERASE 28 IU/L (10-60); AST ASPARTATE AMINOTRANSFERASE 36 IU/L (10-42); BILIRUBIN,TOTAL 1.2 mg/dL (0.2-1.0); BUN - BLOOD UREA NITROGEN 10 mg/dL (6-20); CALCIUM 9.6 mg/dL (8.5-10.3); CARBON DIOXIDE - CO2 25 mmol/L (21-32); CHLORIDE 106 mmol/L (101-111); CREATININE 0.7 mg/dL (0.4-1.0); ETOH - ETHANOL < 5.0 mg/dL; GFR - MDRD 91 (>89); GLUCOSE 87 mg/dL (70-100); LIPASE 30 U/L (22-51); POTASSIUM 3.6 mmol/L (3.5-5.0); SALICYLATE < 6.0 mg/dL; SODIUM 142 mmol/L (135-145); TOTAL PROTEIN 7.9 g/dL (6.7-8.2)
[2020-11-13] MEDS ORDERED: LACTATED RINGERS 1,000 ML IV STA (11:05)
[2020-11-13] MEDS ORDERED: MORPHINE 2 MG/ML CARPUJECT IVP STA ×2 (11:06→15:20)
[2020-11-13 12:01] LABS: MUDS CUTOFF CONCENTRATIONS CUTOFF CONC BELOW:
[2020-11-13 12:03] LABS: BILIRUBIN,URINE NEGATIVE (NEGATIVE); CLARITY,URINE CLEAR (CLEAR); GLUCOSE, URINE (UA) NEGATIVE (NEGATIVE); KETONES,URINE (UA) >=80 mg/dL (NEGATIVE); LEUKOCYTE ESTERASE, URINE NEGATIVE (NEGATIVE); NITRITE,URINE NEGATIVE (NEGATIVE); OCCULT BLOOD,URINE SMALL (NEGATIVE); PH,URINE 5.5 PH (5.0-7.5); PROTEIN,URINE NEGATIVE (NEGATIVE); UROBILINOGEN,URINE 0.2 (NORMAL) E.U./dL (NORMAL)
[2020-11-13 12:11] LABS: BACTERIA,URINE None Seen /HPF (None Seen); MUCUS,URINE Few Strands; RBC,URINE 0-5 /HPF (0-5); SQUAMOUS EPITHELIAL CELL,UR FEW Squamous (<= Few); WBC,URINE 0-3 /HPF (0-5)
[2020-11-13 12:12] LABS: AMPHETAMINE SCREEN,URINE POSITIVE (NEGATIVE); BARBITURATE SCREEN,UR NEGATIVE (NEGATIVE); BENZODIAZEPINES SCREEN, URINE POSITIVE (NEGATIVE); COCAINE SCREEN URINE NEGATIVE (NEGATIVE); METHADONE SCREEN, URINE NEGATIVE (NEGATIVE); METHAMPHETAMINES SCREEN, URINE NEGATIVE (NEGATIVE); OPIATE SCREEN, URINE NEGATIVE (NEGATIVE); OXYCODONE SCREEN, URINE NEGATIVE (NEGATIVE); PROPOXYPHENE SCREEN, URINE NEGATIVE (NEGATIVE); THC CANNABINOID SCREEN, URINE POSITIVE (NEGATIVE); TRICYCLIC ANTIDEPRESSANT,URINE NEGATIVE (NEGATIVE)
[2020-11-13 13:47] VITALS: BP 111/68
[2020-11-13] MEDS ORDERED: SODIUM CHLORIDE 0.9% 1,000 ML IV STA (14:48)
[2020-11-13] MEDS ORDERED: levETIRAcetam INJ 500 MG in SODIUM CHLORIDE 0.9% 100ML 100 ML IV STA (15:19)
== END 2020-11-13 16:46 | disposition home or self-care (01) ==
LOC: EDUNIT# → EDBD → ED 08:39
DX: M79.10 Myalgia, unspecified site (principal); R07.89 Other chest pain; F41.9 Anxiety disorder, unspecified; F32.9 Major depressive disorder, single episode, unspecified; S00.03XA Contusion of scalp, initial encounter; W19.XXXA Unspecified fall, initial encounter; I10 Essential (primary) hypertension; Z72.0 Tobacco use
CPT/HCPCS: 36415; 70450; 71045; 80053; 80306; 80307; 80320; 80329; 81001; 83690; 83880; 84443; 84484; 85025; 93005; 96374; 96375; 96376; 99284; A9270; J2060; J7120; 81003; 87086

== ENCOUNTER 2021-01-22 16:20 | Outpatient (CLI) | payer MEDICAID ==
--- NOTE | 2021-01-23 10:57 | XRAY Report ---
PROCEDURE: Tib/Fib RT INDICATIONS: R LEG PX TECHNIQUE: 2 views of the tibia and fibula were acquired. COMPARISON: None. FINDINGS: Bones: No fractures or dislocations. No suspicious bony lesions. Soft tissues: No suspicious soft tissue calcifications or masses. IMPRESSION: Source of leg pain is not identified. Prior fixation screw at the anterior aspect of the distal tibia presumably for fracture fixation during healing. Reviewed by: Toni Gallagher MD on 01/23/2021 10:56 AM PDT Approved by: Toni Gallagher MD on 01/23/2021 10:56 AM PDT Station ID: [id number]
== END 2021-01-22 23:59 | disposition home or self-care (01) ==
LOC: DI.N 16:20
PROVIDERS: ATTEND Family Medicine
DX: M79.604 Pain in right leg (principal)